=== PATIENT | female | born 1945 | race Caucasian/White ===

== ENCOUNTER → 2021-06-03 10:02 | Outpatient (BNVA) | payer MEDICARE, SELFPAY | PROVIDERS: Visit Provider Surgery | DX: Z01.812 Encounter for preprocedural laboratory examination (principal); Z20.822 Contact with and (suspected) exposure to COVID-19 | CPT/HCPCS: 87635 ==

== ENCOUNTER 2021-06-08 08:11 | Day surgery (SDC) | payer MEDICARE, SELFPAY ==
--- NOTE | 2021-06-08 08:28 | ANES.PREANE2 ---
Pre-Anesthetic Assessment Pre-Anesthetic Assessment: Height/Weight: Height 1.65 m Preop Diagnosis: History of colon polyps Proposed Procedure: Operation Date: 06/08/21 09:45 Proposed Procedures p Colonoscopy 37843 z86.010(Not Applicable) - Yao James MD Was Beta Nusrat taken within 24 hours: N/A Was Clonidine taken within 24 hours: N/A Social: Social History: No alcohol and No tobacco Exam: Pre-Anes Outpt Exam: alert, oriented x 3, clear to auscultation bilaterally and regular rate & rhythm Airway: Submandibular: WNL Cervical ROM: WNL MP: 2 Dentition: False CV/HEM: CV/HEM: HTN Metabolic: Metabolic: Hyperlipidemia and Morbid obesity Anesthetic Plan: ASA status: 3 Anesthesia: MAC Risk of > 500 ml blood loss (7ml/kg in children): No PFSH Anesthesia PFSH: Family History Denies family history of Anesthesia complication Bleeding disorder Social History Smoking and tobacco status: former smoker Data Anesthesia Cardiac Studies: No Data to Display
[2021-06-08 09:09] VITALS: BP 161/88; PULSE 75; RESP 18; TEMP 36.4; O2SAT 99; BMI 32.5
[2021-06-08] MEDS: sodium chloride 0.9% 1,000 ML 30 ML IV (09:26)
--- NOTE | 2021-06-08 09:50 | W.PM.OPSFHP ---
Same Day Surgery H&P Indication for Procedure/HPI DATE OF PROCEDURE: June 08, 2021 CHIEF COMPLAINT/INDICATIONFOR SURGICAL PROCEDURE: Had polyps before PREOP DIAGNOSIS: History of colon polyps PLANNED PROCEDRUE: Operation Date: 06/08/21 09:45 Proposed Procedures p Colonoscopy 48067 z86.010(Not Applicable) - Yao James MD This is a pleasant 75 years old female patient with history of colon polyps and she did undergo colonoscopy 6 years ago. Denies bleeding per rectum or nonintentional weight loss or colon cancer history,patient is referred to my practice for surveillance colonoscopy. Interim history 06/08/2021 Patient comes today for surveillance colonoscopy ROS All systems have been reviewed negative except as per the above or per problem list Medications/Allergies* Home Medications Medication Instructions Recorded Confirmed Type fluticasone propionate 50 1 spray INTRANASAL DAILY 04/14/21 04/16/21 History mcg/actuation nasal spray,suspension lisinopril 10 mg tablet 10 mg PO DAILY 04/14/21 04/16/21 History lovastatin 20 mg tablet 20 mg PO DAILY 04/14/21 04/16/21 History multivitamin 1 tab PO DAILY 04/14/21 04/16/21 History omega-3 fatty acids 1,000 mg 1,000 mg PO DAILY 04/14/21 04/16/21 History capsule vitamin E (dl, acetate) PO 04/14/21 04/16/21 History bupropion HCl PO 06/08/21 History Allergies/Adverse Reactions Allergy/AdvReac Type Severity Reaction Status Date / Time No Known Allergies Allergy Unverified 06/08/21 10:18 Current Medications: Generic Name Dose Route Start Last Admin Trade Name Anicetoq PRN Reason Stop Dose Admin Sodium Chloride 1,000 mls @ 30 mls/hr 06/08/21 08:30 06/08/21 09:26 Sodium Chloride 0.9% IV 06/09/21 08:29 30 mls/hr .Q24H TUNDE Administration Pertinent History/Comorbid Conditions* Family History (Updated 04/14/21 @ 11:24 by JEY Pulido) Denies family history of Anesthesia complication Bleeding disorder Social History Smoking and tobacco status: former smoker Pertinent Exam Findings alert, oriented x 3, clear to auscultation bilaterally, regular rate & rhythm and procedure specific exam findings (Abdominal examination nontender nondistended soft) Recommendations Surgery/Procedure today (Surveillance colonoscopy) Other Plans: Plan of care; After thorough history and physical examination and reviewing the chart, plan to perform surveillance colonoscopy. I discussed with the patient in details the risks,benefits,alternatives and indications.The risk of aspiration, bleeding, soft tissue injury, perforation of the colon and other potential concomitant complications were explained to the patient in details,also the potential need for Laproscoy/Laparotomy to repair any related complications including but not limited to colectomy and or Closotomy.The patient understood this well and did agree to proceed. Rationale was carefully and clearly discussed with the patient.Appropriate informed consent have been reviewed and signed All questions have been answered and all concerns have been addressed to patient's satisfaction. Verbal and written Instructions were given to the patient for colonoscopy prep Coding Level of Care Code Acute Licensing Analyst for Nikki Zafar
[2021-06-08 10:47] VITALS: BP 161/85; PULSE 75; RESP 16; TEMP 36.3; O2SAT 98
[2021-06-08 11:01] VITALS: BP 159/81; PULSE 66; RESP 18; O2SAT 97
--- NOTE | 2021-06-08 14:33 | ANE.PACU2 ---
Inpatient post-anesthesia follow up: Airway intact: Yes Vital signs: Temperature 97.3 F Pulse Rate 66 Respiratory Rate 18 Blood Pressure 159/81 Pulse Oximetry 97 Oxygen Delivery Me thod Room Air Oxygen Flow Rate Fraction of Inspir ed Oxygen Hydration adequate: Yes Nausea and vomiting: No Mental status: Baseline
== END 2021-06-08 11:13 | disposition home or self-care (01) ==
PROVIDERS: PCP Family Medicine; Visit Provider Surgery
PROC: 0DJD8ZZ Inspection of Lower Intestinal Tract, Via Natural or Artificial Opening Endoscopic (ICD-10-PCS; CPT 45378; principal; 2021-06-08 09:45)
DX: Z12.11 Encounter for screening for malignant neoplasm of colon (principal); Z86.010 Personal history of colon polyps; D12.2 Benign neoplasm of ascending colon; I10 Essential (primary) hypertension; E78.5 Hyperlipidemia, unspecified; E66.01 Morbid (severe) obesity due to excess calories; Z68.32 Body mass index [BMI] 32.0-32.9, adult; Z87.891 Personal history of nicotine dependence
CPT/HCPCS: 45380; 88305; 96360; 96361; J2704; J7030

== ENCOUNTER 2022-01-27 10:05 | Outpatient (CLI) | payer MEDICARE, SELFPAY ==
--- NOTE | 2022-01-27 10:26 | MM_ITS ---
WS: [id number] BILATERAL SCREENING 3D TOMOSYNTHESIS DIGITAL MAMMOGRAM WITH CAD HISTORY: SCREENING COMPARISON: 08/03/2020 and 06/27/2018 Bilateral CC and MLO views submitted. Computer aided detection analyzed. Breast composition: There are scattered areas of fibroglandular density. No suspicious masses, microc alcifications or architectural distortion. Benign coarse calcifications in each breast. MM/[place] [id number] IMPRESSION: BI-RADS: 2-Benign FOLLOW UP: 1 Year Follow-up
== END 2022-01-27 10:06 | disposition home or self-care (01) ==
LOC: RADSHAW 10:11
PROVIDERS: PCP Family Medicine; Visit Provider Nurse Practitioner Family
DX: Z12.31 Encounter for screening mammogram for malignant neoplasm of breast (principal)
CPT/HCPCS: 77063; 77067

== ENCOUNTER → 2023-12-17 10:58 | Outpatient (BNVA) | payer MEDICARE, SELFPAY | PROVIDERS: PCP Family Medicine; Referring Provider Nurse Practitioner Family; Visit Provider Internal Medicine Pulmonary Disease | DX: R91.8 Other nonspecific abnormal finding of lung field (principal); R06.02 Shortness of breath; J43.2 Centrilobular emphysema; Z87.891 Personal history of nicotine dependence | CPT/HCPCS: 99204 ==

== ENCOUNTER 2024-01-01 09:45 | Day surgery (SDC) | payer MEDICARE, SELFPAY ==
[2024-01-01] VITALS (10 sets, daily range): BP systolic 142–154; BP diastolic 61–101; PULSE 78–88; RESP 16–18; TEMP 36.1–36.6; O2SAT 92–99; BMI 33.3
--- NOTE | 2024-01-01 09:57 | CT_ITS ---
WS: [id number] CT CHEST TECHNIQUE: Noncontrast CT of the chest with coronal and sagittal reformatted images. CLINICAL INFORMATION: for lung biopsies COMPARISON: 10/16/2023 DLP: [address] scans at [facility] use at least one of these dose optimization techniques: automated e xposure control; mA and/or kV adjustment per patient size (includes targeted exams where dose is matc hed to clinical indication); or iterative reconstruction. FINDINGS: Interval increase in size of the spiculated RIGHT upper lobe mass since the prior outside examination . Today this measures approximately 5.4 x 4.4 cm. Associated surrounding spiculation. This abuts the pleura anteriorly with pleural thickening. This extends inferiorly and abuts the RIGHT hilum. Moderate chronic emphysematous changes. A few calcified granulomas. Aortic calcification. Coronary ca lcification. Calcified anterior mediastinal and hilar lymph nodes. There are few slightly enlarged RI GHT anterior mediastinal and parabronchial lymph nodes. Adrenal glands are normal. Small esophageal hernia. Partially visualized LEFT renal cysts. Some of th shireen are incompletely visualized and nonspecific. Fatty atrophy of the pancreas. No axillary lymphaden opathy. IMPRESSION: 1. Images obtained for intraoperative bronchoscopy navigational purposes
[2024-01-01] MEDS: sodium chloride 0.9% 1,000 ML 30 ML IV (10:37)
--- NOTE | 2024-01-01 10:50 | ANES.PREANE2 ---
Pre-Anesthetic Assessment Height/Weight: Height 1.65 m Weight 90.718 kg Temp Pulse Resp BP Pulse Ox O2 Del Method 97.8 F 78 18 150/101 98 Room Air 01/01/24 10:22 01/01/24 10:01/01/24 10:01/01/24 10:22 01/01/24 10:01/01/24 10:22 Operation Date: 01/01/24 11:40 Proposed Procedures p ION/EBUS. 13757, 45412, 02156, 03023, 24492, 00692, 84220, 67422, 73049, 45561, 36568, 49517, 78356, 3165,R91.8,R59.0(Not Applicable) - Reginald Ventura MD s Ebus(Not Applicable) - Reginald Ventura MD Last intake: Intake Last Liquid Date 12/31/23 Last Liquid Time 22:00 Last Solid Date 12/31/23 Last Solid Time 20:00 Social ex smoker 10 years ago Exam alert, oriented x 3, clear to auscultation bilaterally and regular rate & rhythm Airway Cervical ROM: within normal limits Mallampati: Class I Dentition: full Comments: Comments: uppers CV/HEM Hypertension Anesthetic Plan ASA status: 3 Anesthesia: General Medications/Allergies Home Medications Medication Instructions Recorded Confirmed Last Taken Type lisinopril 10 mg tablet 10 mg PO DAILY 04/14/21 01/01/24 12/31/23 History lovastatin 20 mg tablet 20 mg PO DAILY 04/14/21 01/01/24 12/31/23 History multivitamin 1 tab PO DAILY 04/14/21 01/01/24 12/31/23 History omega-3 fatty acids 1,000 mg 1,000 mg PO DAILY 04/14/21 01/01/24 12/31/23 History capsule (Fish Oil Concentrate) bupropion HCl 150 mg tablet,12 hr 150 mg PO BID 06/08/21 01/01/24 12/31/23 History sustained-release ginkgo biloba leaf extract 30 mg 30 mg PO DAILY 12/17/23 01/01/24 12/31/23 History capsule tiotropium bromide 18 mcg capsule 1 cap inhalation DAILY #60 12/17/23 01/01/24 12/31/23 Rx with inhalation device (Spiriva inhalations with HandiHaler) Allergies Allergy/AdvReac Type Severity Reaction Status Date / Time No Known Allergies Allergy Verified 12/17/23 11:19 Current Medications Generic Name Dose Route Start Last Admin Trade Name Anicetoq PRN Reason Stop Dose Admin Sodium Chloride 1,000 mls @ 30 mls/hr 01/01/24 10:00 01/01/24 10:37 Sodium Chloride 0.9% IV 01/02/24 09:59 30 mls/hr .Q24H TUNDE Administration PFSH Anesthesia Medical History Colon polyp Family History Denies family history of Anesthesia complication Bleeding disorder Social History Smoking and tobacco/nicotine status: never used tobacco/nicotine Quit status (tobacco/nicotine): has quit using Year quit tobacco: 2012 Former quit date comment: 2 ppd X 50 years Data Anesthesia Cardiac Studies: No Data to Display
--- NOTE | 2024-01-01 11:44 | W.PM.OPSUD ---
Surgery/Procedure H&P Update DATE OF PROCEDURE: January 01, 2024 DATE H&P PERFORMED: 12/17/23 H&P UPDATE INFORMATION: I have reviewed H&P completed within last 30 days, I have examined patient prior to procedure and No changes to prior documentation CHANGES TO PREVIOUS DOCUMENTATION: none PREOP DIAGNOSIS: right upper lobe suspicious for malignancy PRIMARY INDICATION FOR PROCEDURE: right upper lobe suspicious for malignancy PLANNED PROCEDURE: Operation Date: 01/01/24 11:40 Proposed Procedures p ION/EBUS. 72009, 66628, 28820, 56631, 73457, 44693, 98884, 20718, 06650, 92139, 70607, 45471, 24299, 3165,R91.8,R59.0(Not Applicable) - Reginald Ventura MD s Ebus(Not Applicable) - Reginald Ventura MD Related Problem List Diagnoses (1) Lung mass:
--- NOTE | 2024-01-01 11:45 | SC_ITS ---
WS: [id number] INTRAOPERATIVE TECHNIQUE: 2 Spot fluoroscopic images for intraoperative purposes. FLUOROSCOPY TIME: 53.6 seconds CLINICAL INFORMATION: ION/EBUS/BRONCH COMPARISON: None. FINDINGS: Bronchoscopy with cannulation of the RIGHT upper lobe bronchus. IMPRESSION: Images obtained for intraoperative purposes.
[2024-01-01] MEDS: lidocaine 1% INJ 10 mL (per mL) XX (12:10)
[2024-01-01 12:53] LABS: Cyto Order Verification Order Verified
[2024-01-01 12:56] LABS: Apprearance, Bronch Wash Bloody (CLEAR); Bronch Source Right Upper Lobe; Color, Bronc Wash Red; PATH Referral Yes
--- NOTE | 2024-01-01 13:17 | XRR_ITS ---
PROCEDURE INFORMATION: Exam: XR Chest Exam date and time: 01/01/2024 2:06 PM Age: 78 years old Clinical indication: Device placement; Other: Post ion/ebus; Prior surgery; Surgery date: Post-operative (0-2 days); Additional info: Post ion/ebus, will call from pacu when ready TECHNIQUE: Imaging protocol: Radiologic exam of the chest. Views: 1 view. COMPARISON: CT chest ION (PULM ONLY) [id number] 01/01/2024 10:02 AM FINDINGS: Lungs: Right upper lobe mass as on concurrent CT. Coarse interstitial markings may reflect a mild degree of pulmonary edema. Pleural spaces: No pleural effusion. No pneumothorax. Heart/Mediastinum: No cardiomegaly. Bones/joints: No acute findings. XR/XR chest 1V portable [id number] IMPRESSION: No unexpected postoperative findings.
--- NOTE | 2024-01-01 15:27 | P.OP_ITS ---
Operative Report Date of procedure: January 01, 2024 Pre-op diagnosis: suspected malignancy Post-op diagnosis: suspected malignancy Procedure done: -Dx Bronchoscope w/Washings or airway inspection -Dx Bronchoscope w/BAL -Bronch with computer image guided Navigational Bronchoscopy -Bronchoscopy w/Transbronchial lung biopsy(s), single lobe using forceps -Bronchoscopy w/Transbronchial needle aspiration biopsy(s), tracheal, main stem, and/or lobar bronchus -Bronchoscopy w/ therapeutic aspiration of the tracheobronchial tree (clearance of airway secretions, removal of mucus plugs) -EBUS Sampling > 3 lymph nodes Surgeon: Reginald Ventura MD Brief History: Ms. Lizeth Rebolledo is a 78-year-old female is referred by her primary care physician Ms. Cirsty Jonas for lung mass. She has past medical history of hypertension, hyperlipidemia,. She had respiratory infection in September [address] chest 10/16/2023 showed right upper lobe solid 3.9 x 3.5 cm mass. Enlarged mediastinal lymph nodes. Moderately emphysematous changes. She is a former smoker with hx of 2 ppd X 50 years, quit in 2012. Unfortunately She lost her 3 days ago and has rescheduled her procedure to this week. Today she comes for navigational bronchoscopy guided biopsies and endobronchial ultrasound-guided biopsy of hilar/mediastinal lymph node. Today CT chest rior to procedure compared to September 2023 CAT scan shows increase in size approximately 5.4 x 4.4 cm. Associated surrounding spiculation. This abuts the pleura anteriorly with pleural thickening. This extends inferiorly and abuts the RIGHT hilum. Procedure: ROBOTIC BRONCHOSCOPY NOTE: Pre-procedure Verification: Prior to the procedure, the patient's identity was verified by full name, date of and medical record number. The patient's identity was verified on all pertinent medical records. Also prior to the procedure, a History and Physical was performed, and patient medications, allergies and sensitivities were reviewed. The patient's tolerance of previous anesthesia was reviewed. The risks and benefits of the procedure and the sedation options and risks were discussed with the patient. All questions were answered and informed consent was obtained. Planning: Using the [employer] ([employer]) planning software, this patient?s preoperative CT was loaded onto the system and then target and pathway mapping was performed. This was all done prior to the start of the procedure and appropriate plan verified prior to induction. Anesthesia: General anesthesia was used. Please see anesthesiology documentation for full details. A modified LNVP/Yolande Protocol was used for robotic bronchoscopy with rapid Intubation, recruitment maneuvers, Tidal Volume around 8 -10mL/Kg [place] Body Weight, and PEEP 10-15 as feasible. Time-Out: Prior to the start of the procedure, the patient's identification, proposed procedure, accurate signed consent, correctly labeled images and records, and need for prophylactic antibiotics were verified by the physician, the nurse, the anesthesiologist and the coal hauler operator in the procedure room. Procedural Details: After obtaining informed consent, The procedure was accomplished without difficulty. The patient tolerated the procedure well. Patient preparation: Patient was placed under general anesthesia. An 8.5 ETT was placed for bronchoscopy. The larynx and vocal cords were not visualized. The trachea was anatomically normal The right sided airway was anatomically normal without endobronchial lesions. thin slightly mucoid appearing secretions. The left sided airway was anatomically normal without endobronchial lesions. thin slightly mucoid appearing secretions. Therapeutic aspiration of the airways, initial encounter, was performed at the right bronchial tree. The therapeutic bronchoscope was then removed. We communicated with the anesthesia team to ensure proper ventilator settings for optimal peripheral bronchoscopy. FIRST LOBE: The Ion Shape Sensing Robotic Assisted Bronchoscope was brought into the field and the process of registration was carried out. The guide catheter was used for peripheral navigational bronchoscopy using the planned pathway into the right upper lobe anterior segment mass and was able to be wedged peripherally at a distance of 8 mm away from the target. We locked the catheter position in, and removed the vision probe. We introduced the radial EBUS probe and obtained an good concentric signal [id number] image location relative to the lesion in the same lobe. We confirmed our location with a fluoroscopic C-arm. We then removed the R-EBUS and introduced the biopsy tools starting with a 21 G ION bronchoscopic peripheral needle for Transbronchial Needle Aspirations (TBNA) . The first pass was not sent for Rapid On Site Evaluation (ANATOLIY) as we do not have onsite pathology. We continued more biopsies in a cloud format. Transbronchial biopsies of right upper lobe anterior segment mass were made using forceps. Transbronchial biopsy technique was selected because the sampling site was not visible endoscopically. The sampling device penetrated the full thickness of the bronchial wall to obtain the biopsy of lung tissue. 5 biopsy passes were performed, and the same number of biopsy samples were obtained. Finally, we used a 20 cc syringe filled with normal saline connected to the proximal portion of the ION catheter and slowly injected and aspirated the contents for a bronchial alveolar lavage of the right upper lobe. The return was cloudy and blood tinged 13 cc . At this point and after confirming the absence of bleeding, we removed the channel. Minimal blood residue was cleared from the airway and the peripheral navigation portion of the procedure was concluded. Empiric cold saline was instilled through the catheter and tamponade held for 1-5 minutes. Next, we turned our attention to linear EBUS staging. An EBUS exam was performed: - Stations 11 L, station 7, station 4R, station 11 R were enlarged > 5mm and sampled. - Stations 10L, 4L, 10R, and were also scanned but no obvious lymph nodes were identified and thus did not meet criteria for sampling. Level 11L station was identified with the EBUS scope at the LLL/L hilum and 3 passes were made using a 21G Olympus TBNA needle. Level 7 station was identified with the EBUS scope at the medial LMSB/RMSB and 4 passes were made using a 21 G Olympus TBNA needle. Level 4R station was identified with the EBUS scope at the lateral RMSB and 3 passes were made using a 21G Olympus TBNA needle. Level 11R station was identified with the EBUS scope at the RBI/R hilum and 3 passes were made using a 21G Olympus TBNA needle. Rapid onsite path evaluation (ANATOLIY) was not utilized for this case. Following completion of all diagnostic and therapeutic procedures, hemostasis was verified. The scope was removed and procedure concluded. Samples: A. Right upper lobe mass 1. Total of 5 passes were made using needle aspiration ; we do not have onsite pathology and so all the material was placed in formalin for histopathology 2. Targeting the same area 5 passes were made using forceps ; we do not have onsite pathology and so all the material was placed in formalin for histopathology 3. Bronchoscope was wedged at the entrance of the anterior segment of right upper lobe, 20 mL of saline was instilled and returned 13 mL of bronchoalveolar lavage . The fluid was mixed with blood and specks of tissue. Samples for cell count, cytology, cultures B. EBUS guided Fine-needle aspiration biopsies were taken from Stations 11 L, station 7, station 4R, station 11 R 5. Total of 3 passes were made using needle aspiration from station 11 L; all the material was placed in formalin and sent for histopathology 6. Total of 3 passes were made using needle aspiration from station 7; all the material was placed in formalin and sent for histopathology 7. Total of 3 passes were made using needle aspiration from station 4 R; all the material was placed in formalin and sent for histopathology 8. Total of 3 passes were made using needle aspiration from station 11 R; all the material was placed in formalin and sent for histopathology Complications: None.The patient was extubated and brought to the PACU in stable condition. Postprocedure chest x-ray: There is no evidence of pneumothorax Disposition: Patient can be discharged home in stable condition. Pt, and family are aware that I am going to call them to update final biopsy results once available.
[2024-01-01 15:28] LABS: Total Cells Counted Bronch 200
--- NOTE | 2024-01-01 15:38 | ANE.PACU2 ---
Inpatient post-anesthesia follow up: Vital signs: Temperature 97.5 F Pulse Rate 84 Respiratory Rate 18 Blood Pressure 150/73 Pulse Oximetry 93 Oxygen Delivery Me thod Room Air Oxygen Flow Rate 8 Fraction of Inspir ed Oxygen Additional Comments: no apparent anesthetic complications noted.
[2024-01-09 10:50] LABS: PD-L1 (Clone 22C3) by IHC BBPL See Report
== END 2024-01-01 14:53 | disposition home or self-care (01) ==
PROVIDERS: PCP Family Medicine; Visit Provider Internal Medicine Pulmonary Disease
PROC: 0BJ08ZZ Inspection of Tracheobronchial Tree, Via Natural or Artificial Opening Endoscopic (ICD-10-PCS; CPT 31622; principal; 2024-01-01 11:40)
PROC: BB4BZZZ Ultrasonography of Pleura (ICD-10-PCS; 2024-01-01 11:40)
DX: C34.11 Malignant neoplasm of upper lobe, right bronchus or lung (principal); Z87.891 Personal history of nicotine dependence; J43.2 Centrilobular emphysema; I10 Essential (primary) hypertension
CPT/HCPCS: 31624; 31627; 31628; 31629; 31645; 31653; 71045; 71250; 76000; 80503; 87070; 87205; 88112; 88305; 88341; 88342; 89050; J1100; J2371; J2405; J2704; J3010; J3490; J7030

== ENCOUNTER 2024-01-09 06:54 | Outpatient (CLI) | payer MEDICARE, SELFPAY ==
[2024-01-09 07:32] VITALS: PULSE 98; RESP 18; O2SAT 97
[2024-01-09] MEDS: albuterol 2.5 mg/3 mL Neb INHALATION (07:32)
[2024-01-09 07:36] VITALS: PULSE 97
== END 2024-01-09 06:55 | disposition home or self-care (01) ==
LOC: RT 06:54
PROVIDERS: PCP Family Medicine; Visit Provider Internal Medicine Pulmonary Disease
DX: R06.02 Shortness of breath (principal)
CPT/HCPCS: 94060; 94618; 94726; 94729

== ENCOUNTER 2024-01-10 10:34 | Oncology outpatient (recurring) (ONCR) | payer MEDICARE, MEDICAID, SELFPAY ==
[2024-01-10 12:12] LABS: Basophils % 0.5 %; Eosinophils # 0.4 10^3/uL (0.0-0.8); Hematocrit 41.1 % (36-47); Lymphocytes # 1.7 10^3/uL (0.8-4.8); Lymphocytes % 20.5 %; Mean Corpuscular HGB Conc 33.1 g/dL (30-55); Mean Corpuscular Hemoglobin 32.9 pg (27-33); Mean Corpuscular Volume 99.5 fl (85-98); Mean Platelet Volume 9.8 fL (7.4-10.4); Monocytes # 1.1 10^3/uL (0.2-0.9); Monocytes % 13.3 %; Neutrophils # 4.87 10^3/uL (1.8-7.7); Neutrophils % 60.5 %; Nucleated Red Blood Cells % 0 %; Platelet Count 328 10^3/cmm (157-399); Red Blood Count 4.13 10^6/uL (3.85-5.65); White Blood Count 8.05 10^3/uL (3.29-11.43)
[2024-01-10 13:04] LABS: Alanine Aminotransferase 11 U/L (0-33); Albumin Level 3.9 g/dL (3.5-5.2); Alkaline Phosphatase 106 U/L (35-105); Anion Gap 16.3 (5-19); Aspartate Amino Transferase 16 U/L (0-32); Blood Urea Nitrogen 14 mg/dL (8-23); Calcium 9.2 mg/dL (8.5-10.5); Carbon Dioxide 25 mmol/L (22-29); Chloride 103 mmol/L (98-107); Creatinine Clr Calc Pharmacy 37.2536; Free T4 Free Thyroxine 1.16 ng/dL (0.82-1.77); Globulin 3.8 g/dL (1.3-4.6); Glucose 82 mg/dL (65-115); Osmolality Calculated 290 mOsm/kg (285-295); Potassium 4.3 mmol/L (3.5-5.1); Sodium 140 mmol/L (136-145); Thyroid Stimulating Hormone 3.21 uIU/mL (0.27-4.20); Total Bilirubin 0.2 mg/dL (0.15-1.2); Total Protein 7.7 g/dL (6.6-8.7)
[2024-01-10 13:16] LABS: Hepatitis A Antibody IgM Non-Reactive (Nonreactive); Hepatitis B Core AB, Total Non-Reactive (Nonreactive); Hepatitis B Surface AB < 3.5 (11.5-1000); Hepatitis B Surface Antigen Non-Reactive (Nonreactive); Hepatitis C Virus Antibody Non-Reactive (Nonreactive)
== END 2024-01-27 23:59 | disposition home or self-care (01) ==
PROVIDERS: PCP Family Medicine; Visit Provider Internal Medicine
DX: C34.11 Malignant neoplasm of upper lobe, right bronchus or lung (principal); Z87.891 Personal history of nicotine dependence; J43.2 Centrilobular emphysema; R53.83 Other fatigue; Z13.29 Encounter for screening for other suspected endocrine disorder; Z11.59 Encounter for screening for other viral diseases
CPT/HCPCS: 36415; 80053; 84439; 84443; 85025; 86705; 86706; 86709; 86803; 87340; 99205

== ENCOUNTER → 2024-01-15 13:51 | Outpatient (BNVA) | payer MEDICARE, MEDICAID, SELFPAY | PROVIDERS: PCP Family Medicine; Visit Provider Internal Medicine Pulmonary Disease | DX: C34.91 Malignant neoplasm of unspecified part of right bronchus or lung (principal); J43.2 Centrilobular emphysema; K29.60 Other gastritis without bleeding | CPT/HCPCS: 99214 ==

== ENCOUNTER → 2024-01-21 09:17 | Outpatient (BNVA) | payer MEDICARE, SELFPAY | PROVIDERS: PCP Family Medicine; Referring Provider Internal Medicine; Visit Provider Surgery | DX: C34.91 Malignant neoplasm of unspecified part of right bronchus or lung (principal) | CPT/HCPCS: 99214 ==

== ENCOUNTER 2024-01-22 07:38 | Outpatient (CLI) | payer MEDICARE, SELFPAY ==
--- NOTE | 2024-01-22 07:47 | PETR_ITS ---
PROCEDURE INFORMATION: Exam: PET/CT Skull Base to Mid-thigh Exam date and time: 01/22/2024 8:49 AM Age: 78 years old Clinical indication: Abnormal findings; Lung mass; Additional info: Follow up lung mass. History of bronchoscopy 01/01/2024. LABS AND CLINICAL REPORTS: Glucose: 118 mg/dl Treatment strategy for malignancy (PET staging): Initial Staging (PI) TECHNIQUE: Imaging protocol: Following at least four-hour fasting and following the injection of radiopharmaceutical, low dose CT images were obtained. Then, PET images were obtained. Attenuation corrected images were constructed using the CT scan. Fused images of PET and CT were reviewed. The standardized uptake values (SUV) reported below are maximum values within a region of interest, expressed in gm/ml. Exam includes orbital meatal line to mid-thigh. Radiopharmaceutical: 12.71 mCi F-18 FDG (Fluorodeoxyglucose), IV. Time of imaging post radiopharmaceutical administration: 1 hour Injection site: Right antecubital COMPARISON: CT chest ION (PULM ONLY) [id number] 01/01/2024 10:02 AM, CT chest 10/16/2023 FINDINGS: Brain: Visualized brain has normal physiologic uptake. Pharynx: No abnormal uptake. Larynx: No abnormal uptake. Lungs, pleura and trachea: A solid right upper lobe mass which abuts the superior right perihilar region measures up to approximately 4.8 x 5.0 cm in the axial plane on series 3, image 72, SUV max 20.5. Calcified granulomas in the lungs are noted bilaterally. Mild centrilobular emphysematous changes are noted.Mild dependent streaky density in the lungs is consistent with atelectasis. Heart: Normal physiologic uptake. Mediastinal space: No abnormal uptake. Liver: No abnormal uptake. Gallbladder and bile ducts: No abnormal uptake. Pancreas: No abnormal uptake. Spleen: No abnormal uptake. A calcified granuloma in the spleen is noted. Adrenal glands: No abnormal uptake. Kidneys and ureters: Low-density non radiotracer avid structures in both kidneys are compatible with probable benign cysts. Stomach and bowel: No abnormal uptake. Vasculature: No abnormal uptake. There are diffuse atherosclerotic changes. Lymph nodes: Partially calcified precarinal and right hilar lymph nodes are noted demonstrating elevated uptake for example in the precarinal space measuring 2.7 x 2.1 cm on series 3, image 73, SUV max 5.1 and in the right hilar region in a region measuring approximately 2.4 x 1.7 cm on series 3, image 78, SUV max 6.4. Assessment of the size of these lymph nodes is limited without intravenous contrast. Bones/joints: No abnormal uptake in the visualized axial and appendicular skeleton. Degenerative changes in the spine are noted with mild to moderate lumbar spine levoscoliosis. Soft tissues: No abnormal uptake in the visualized head, neck, chest, abdomen, pelvis, and extremities. METRICS: Mediastinal blood pool: SUV max 2.2 [facility] [id number] IMPRESSION: 1. A right upper lobe mass demonstrates marked elevated uptake compatible with malignancy. Correlation with the bronchoscopy results is recommended. 2. Radiotracer uptake within partially calcified precarinal right hilar lymph nodes is noted. Although malignancy cannot be excluded, inflammatory or infectious uptake may alternatively account for this appearance. 3. No additional areas of radiotracer avid malignancy. 4. Old granulomatous changes. 5. Additional nonurgent findings as detailed above.
== END 2024-01-22 07:39 | disposition home or self-care (01) ==
LOC: RAD 07:39
PROVIDERS: PCP Family Medicine; Visit Provider Internal Medicine Pulmonary Disease
DX: R91.8 Other nonspecific abnormal finding of lung field (principal)
CPT/HCPCS: 78815; A9552

== ENCOUNTER 2024-01-23 12:02 | Day surgery (SDC) | payer MEDICARE, SELFPAY ==
--- NOTE | 2024-01-23 12:26 | XRR_ITS ---
PROCEDURE INFORMATION: Exam: XR Chest Exam date and time: 01/23/2024 2:55 PM Age: 78 years old Clinical indication: Device placement; Other: Mediport placement; Prior surgery; Surgery date: Post-operative (0-2 days); Additional info: Postop mediport placement TECHNIQUE: Imaging protocol: Radiologic exam of the chest. Views: 1 view. COMPARISON: CR XR chest 1V portable [id number] 01/01/2024 2:06 PM FINDINGS: Tubes, catheters and devices: Central line tip mid SVC. Lungs: Right upper lobe mass unchanged. Left basilar subsegmental atelectasis. No infiltrate. Pleural spaces: Unremarkable. No pleural effusion. No pneumothorax. Heart/Mediastinum: Unremarkable. No cardiomegaly. Bones/joints: Unremarkable. XR/XR chest 1V portable [id number] IMPRESSION: 1. Right upper lobe mass unchanged. 2. Left basilar subsegmental atelectasis. 3. Central line tip mid SVC.
--- NOTE | 2024-01-23 12:26 | SC_ITS ---
WS: [id number] INTRAOPERATIVE TECHNIQUE: 2 Spot fluoroscopic images for intraoperative purposes. FLUOROSCOPY TIME: 2.4 seconds CLINICAL INFORMATION: Mediport placement COMPARISON: None. FINDINGS: LEFT Port-A-Cath with tip in the mid SVC. No pneumothorax. IMPRESSION: Images obtained for intraoperative purposes.
[2024-01-23 12:39] VITALS: BP 166/77; PULSE 86; RESP 17; TEMP 36.5; O2SAT 96
[2024-01-23 12:40] VITALS: BMI 33.1
[2024-01-23] MEDS: sodium chloride 0.9% 1,000 ML 30 ML IV (13:03)
--- NOTE | 2024-01-23 13:08 | ANES.PREANE2 ---
Pre-Anesthetic Assessment Height/Weight: Height 1.65 m Weight 90.265 kg Temp Pulse Resp BP Pulse Ox O2 Del Method 97.7 F 86 17 166/77 96 Room Air 01/23/24 12:39 01/23/24 12:39 01/23/24 12:39 01/23/24 12:39 01/23/24 12:39 01/23/24 12:57 Operation Date: 01/23/24 13:55 Proposed Procedures p Portacath Placement(Not Applicable) - Avtar Lemon DO Familial anesthetic complications: None Was Beta Nusrat taken within 24 hours: N/A Was Clonidine taken within 24 hours: N/A Last intake: Intake Last Liquid Date 01/22/24 Last Liquid Time 22:00 Last Solid Date 01/22/24 Last Solid Time 22:00 Social No alcohol and No tobacco Exam alert, oriented x 3, clear to auscultation bilaterally and regular rate & rhythm Airway Dentition: full Pulmonary Chronic Obstructive Pulmonary Disease Lung cancer CV/HEM Hypertension GI Gastroesophageal Reflux Disease Metabolic Hyperlipidemia Anesthetic Plan ASA status: 4 Anesthesia: MAC Risk of > 500 ml blood loss (7ml/kg in children): No Medications/Allergies Home Medications Medication Instructions Recorded Confirmed Last Taken Type lisinopril 10 mg tablet 10 mg PO DAILY 04/14/21 01/22/24 01/22/24 History lovastatin 20 mg tablet 20 mg PO DAILY 04/14/21 01/22/24 01/21/24 History multivitamin 1 tab PO DAILY 04/14/21 01/22/24 01/22/24 History omega-3 fatty acids 1,000 mg 1,000 mg PO DAILY 04/14/21 01/22/24 01/22/24 History capsule (Fish Oil Concentrate) bupropion HCl 150 mg tablet,12 hr 150 mg PO BID 06/08/21 01/22/24 01/22/24 History sustained-release ginkgo biloba leaf extract 30 mg 30 mg PO DAILY 12/17/23 01/22/24 01/22/24 History capsule tiotropium bromide 18 mcg capsule 1 cap inhalation DAILY #60 12/17/23 01/22/24 01/22/24 Rx with inhalation device (Spiriva inhalations with HandiHaler) pantoprazole 40 mg tablet,delayed 40 mg PO DAILY #14 tabs 01/15/24 01/22/24 01/22/24 Rx release vitamin E mixed 400 unit capsule 400 unit PO DAILY 01/15/24 01/22/24 01/22/24 History Allergies Allergy/AdvReac Type Severity Reaction Status Date / Time No Known Allergies Allergy Verified 01/22/24 16:15 Current Medications Generic Name Dose Route Start Last Admin Trade Name Freq PRN Reason Stop Dose Admin Sodium Chloride 1,000 mls @ 30 mls/hr 01/23/24 12:30 01/23/24 13:03 Sodium Chloride 0.9% IV 01/24/24 12:29 30 mls/hr .Q24H TUNDE Administration PFSH Anesthesia Medical History (Updated 01/21/24 @ 09:48 by Avtar Lemon DO) Hyperlipemia Hypertension Depression with anxiety Adenocarcinoma of right lung Colon polyp Surgical History (Updated 01/21/24 @ 09:48 by Avtar Lemon DO) History of colonoscopy History of cholecystectomy History of appendectomy Family History Denies family history of Anesthesia complication Bleeding disorder Social History Smoking and tobacco/nicotine status: never used tobacco/nicotine Quit status (tobacco/nicotine): has quit using Year quit tobacco: 2012 Former quit date comment: 2 ppd X 50 years Data Anesthesia Cardiac Studies: No Data to Display
--- NOTE | 2024-01-23 14:53 | W.PM.OPSUD ---
Surgery/Procedure H&P Update DATE OF PROCEDURE: January 23, 2024 DATE H&P PERFORMED: 01/21/24 H&P UPDATE INFORMATION: I have reviewed H&P completed within last 30 days, I have examined patient prior to procedure and No changes to prior documentation PLANNED PROCEDURE: Operation Date: 01/23/24 13:55 Proposed Procedures p Portacath Placement(Not Applicable) - Avtar Lemon DO
[2024-01-23] MEDS: ceFAZolin 2,000 MG in sodium chloride 0.9% (plus) 50 ML 100 MG IV (15:00)
[2024-01-23] MEDS: heparin, porcine 1,000 unit/mL INJ 10 mL 10000 UNIT INJECTION (15:36)
--- NOTE | 2024-01-23 15:45 | PM.OP ---
Operative Report Date of procedure: January 23, 2024 Pre-op diagnosis: Lung cancer Post-op diagnosis: same Procedure done: Mediport placement Intraoperative interpretation of fluoroscopy Implants: PowerPort Specimens removed/disposition: None Surgeon: Avtar Lemon DO Anesthesia: MAC and Local Estimated blood loss (mL): 5 Complications: None apparent Brief History: This is a very pleasant 78-year-old female who was diagnosed with adenocarcinoma of the right lung. Oncology requested Mediport placement for chemotherapy access. The risk and benefits were explained and documented. Procedure: They put another order I will do right now things the patient was taken to the operating room and placed supine on the operating room table. All bony prominences were padded. She was given IV sedation and monitored throughout the case by the anesthesia personnel. SCDs were placed and turned on. The arms were tucked to the side. Patient received Ancef 2 g preoperatively IV. The bilateral chest wall was prepped and draped in usual sterile fashion using chlorhexidine base prep. Sterile drapes were applied. We did procedure pause prior to beginning. An 18 gauge needle was placed in the left subclavian vein. Dark, nonpulsatile blood was aspirated. A guidewire was placed through the needle centrally toward the atrial/vena caval junction. Fluoroscopy visualized good placement. The needle was removed and the guidewire was clipped to the drape with a hemostat. Further local anesthetic was infiltrated in the soft tissues of the left chest wall and a #15 blade was used to make a horizontal skin incision. A subcutaneous Mediport pocket was created using Bovie cautery, dissecting down through the skin and subcutaneous tissues. Meticulous hemostasis was achieved. The Mediport was sutured in position using 3-0 vicryl suture x2 stitches. A #15 blade was used to make a small skin geeta around the guidewire insertion area. The Mediport tubing was tunneled through the subcutaneous tissues up to the needle insertion location. A dilator with a peel-away sheath was placed over the guidewire and placed centrally. After measuring the Mediport tubing was cut to length so that the tip would end at the atrial/vena caval junction. The inner cannula and the guidewire were removed, leaving the dilator sheath in place. The Mediport was flushed. The tip of the catheter was inserted through the peel-away sheath and the peel-away sheath removed in the standard fashion. The Mediport was accessed with a straight Monzon needle and dark, nonpulsatile blood was aspirated and flushed using heparinized saline to hep-lock the Mediport. Final fluoroscopy visualization showed no kink in the catheter and the tip of the Mediport tubing near the atrial/vena caval junction. No obvious pneumothorax was visualized. Both skin incisions were thoroughly irrigated and suctioned dry. Meticulous hemostasis noted. The dermis was approximated with 3-0 Vicryl in an interrupted fashion. Skin was closed with Dermabond. Patient was awakened from anesthesia and transferred via her cart to the recovery room in stable condition. All needle, sponge, and instrument counts were correct per the operating personnel x2 counts.
[2024-01-23 15:47] VITALS: BP 129/61; PULSE 77; RESP 16; TEMP 36.1; O2SAT 99
[2024-01-23 15:52] VITALS: BP 136/63; PULSE 77; RESP 16; O2SAT 100
[2024-01-23 15:56] VITALS: BP 156/89; PULSE 77; RESP 16; O2SAT 97
[2024-01-23 16:02] VITALS: BP 174/80; PULSE 74; RESP 16; TEMP 36.6; O2SAT 96
[2024-01-23 16:16] VITALS: BP 166/96; PULSE 71; RESP 16; O2SAT 98
--- NOTE | 2024-01-23 16:35 | ANE.PACU2 ---
Inpatient post-anesthesia follow up: Airway intact: Yes Vital signs: Temperature 97.8 F Pulse Rate 71 Respiratory Rate 16 Blood Pressure 166/96 Pulse Oximetry 98 Oxygen Delivery Me thod Room Air Oxygen Flow Rate 8 Fraction of Inspir ed Oxygen Hydration adequate: Yes Nausea and vomiting: No Pain level: 1 Mental status: Baseline
== END 2024-01-23 16:35 | disposition home or self-care (01) ==
PROVIDERS: PCP Family Medicine; Visit Provider Surgery
PROC: (CPT 36561; principal; 2024-01-23 13:45)
DX: C34.91 Malignant neoplasm of unspecified part of right bronchus or lung (principal); J44.9 Chronic obstructive pulmonary disease, unspecified; I10 Essential (primary) hypertension; K21.9 Gastro-esophageal reflux disease without esophagitis; E78.5 Hyperlipidemia, unspecified; Z87.891 Personal history of nicotine dependence; Z80.1 Family history of malignant neoplasm of trachea, bronchus and lung
CPT/HCPCS: 36561; 71045; 77001; C1788; J0690; J1644; J2704; J3010; J7030

== ENCOUNTER → 2024-02-04 09:01 | Outpatient (BNVA) | payer MEDICARE, SELFPAY | PROVIDERS: PCP Family Medicine; Visit Provider Surgery | DX: C34.91 Malignant neoplasm of unspecified part of right bronchus or lung (principal) | CPT/HCPCS: 99214 ==

== ENCOUNTER 2024-02-11 10:36 | Outpatient (CLI) | payer MEDICARE, MEDICAID, SELFPAY ==
--- NOTE | 2024-02-11 11:00 | MR_ITS ---
WS: [id number] MRI BRAIN WITH AND WITHOUT CONTRAST HISTORY: staging lung cancer COMPARISON: None available. TECHNIQUE: Multiplanar imaging performed through the brain with MultiHance 20 ml's IV. No acute infarcts are seen. Boles-white matter differentiation is well preserved. There is advanced T2 and FLAIR signal white matter disease throughout the brain. Symmetric, bilateral and diffuse. There are patchy and focal areas of increased signal throughout the white matter. Small vessel ischemic carola nges extend into the allison. There are small susceptibility artifacts noted over the RIGHT cranium. No prior studies for compariso n. History provided states prior trauma as a child. Ventricles and extra-axial spaces are normal. Clivus and pituitary gland are normal. Postcontrast images are negative for masses or vascular malformations. No metastatic lesions are iden tified within the brain. Dural venous sinuses are normal. Paranasal sinuses: Well aerated with no significant disease. Mastoid air cells: Normal. Calvarium and scalp: Normal. Well-circumscribed low-attenuation mass in the soft tissues posterior to the upper cervical spine oleg sures 1.7 x 1.4 cm. Most likely representing a sebaceous or epidermoid cyst. IMPRESSION: 1. No acute infarct. 2. No intracranial mass. No metastatic disease to the brain. 3. Advanced small vessel ischemic disease in the supratentorial white matter. Mild small vessel isch emic changes in the allison.
[2024-02-11] MEDS: gadobenate dimeglumine 20 mL vial IV (11:30)
== END 2024-02-11 10:37 | disposition home or self-care (01) ==
LOC: RAD 10:38
PROVIDERS: PCP Family Medicine; Visit Provider Internal Medicine
DX: C34.90 Malignant neoplasm of unspecified part of unspecified bronchus or lung (principal); I67.82 Cerebral ischemia
CPT/HCPCS: 70553; A9577

== ENCOUNTER 2024-02-20 08:15 | Oncology outpatient (recurring) (ONCR) | payer MEDICARE, MEDICAID, SELFPAY ==
[2024-02-13 09:06] LABS: Basophils % 0.5 %; Eosinophils # 0.4 10^3/uL (0.0-0.8); Eosinophils % 5.3 %; Hematocrit 39.9 % (36-47); Lymphocytes % 12.4 %; Mean Corpuscular HGB Conc 32.8 g/dL (30-55); Mean Corpuscular Volume 100.5 fl (85-98); Mean Platelet Volume 9.9 fL (7.4-10.4); Monocytes # 0.5 10^3/uL (0.2-0.9); Monocytes % 6.5 %; Neutrophils # 5.99 10^3/uL (1.8-7.7); Neutrophils % 74.8 %; Nucleated Red Blood Cells % 0 %; Platelet Count 312 10^3/cmm (157-399); Red Blood Count 3.97 10^6/uL (3.85-5.65); Red Cell Distribution Width 13.2 % (12.1-15.1)
[2024-02-13 09:21] LABS: Alanine Aminotransferase 8 U/L (0-33); Albumin Level 3.8 g/dL (3.5-5.2); Alkaline Phosphatase 110 U/L (35-105); Anion Gap 14.9 (5-19); Aspartate Amino Transferase 17 U/L (0-32); Blood Urea Nitrogen 19 mg/dL (8-23); Calcium 9.4 mg/dL (8.5-10.5); Carbon Dioxide 26 mmol/L (22-29); Chloride 99 mmol/L (98-107); Globulin 3.6 g/dL (1.3-4.6); Glucose 114 mg/dL (65-115); Osmolality Calculated 283 mOsm/kg (285-295); Potassium 4.9 mmol/L (3.5-5.1); Sodium 135 mmol/L (136-145); Thyroid Stimulating Hormone 5.76 uIU/mL (0.27-4.20); Total Bilirubin 0.2 mg/dL (0.15-1.2); Total Protein 7.4 g/dL (6.6-8.7)
[2024-02-13] MEDS: cyanocobalamin 1,000 mcg/mL SDV 1000 MCG IM (11:40)
[2024-02-13 15:23] LABS: Free T4 Free Thyroxine 1.11 ng/dL (0.82-1.77); T3 Free 2.9 PG/ML (2.0-4.4)
[2024-02-20 09:14] LABS: Basophils % 0.1 %; Hematocrit 38.2 % (36-47); Lymphocytes # 0.9 10^3/uL (0.8-4.8); Lymphocytes % 7.9 %; Mean Corpuscular HGB Conc 32.7 g/dL (30-55); Mean Corpuscular Hemoglobin 32.6 pg (27-33); Mean Corpuscular Volume 99.5 fl (85-98); Mean Platelet Volume 9.9 fL (7.4-10.4); Monocytes # 0.8 10^3/uL (0.2-0.9); Monocytes % 7.4 %; Neutrophils # 9.52 10^3/uL (1.8-7.7); Neutrophils % 84.2 %; Nucleated Red Blood Cells % 0 %; Platelet Count 298 10^3/cmm (157-399); Red Blood Count 3.84 10^6/uL (3.85-5.65); Red Cell Distribution Width 13.2 % (12.1-15.1); White Blood Count 11.31 10^3/uL (3.29-11.43)
[2024-02-20 09:30] LABS: Alanine Aminotransferase 9 U/L (0-33); Albumin Level 3.5 g/dL (3.5-5.2); Alkaline Phosphatase 103 U/L (35-105); Anion Gap 13.8 (5-19); Aspartate Amino Transferase 16 U/L (0-32); Blood Urea Nitrogen 25 mg/dL (8-23); Carbon Dioxide 26 mmol/L (22-29); Chloride 102 mmol/L (98-107); Creatinine Clr Calc Pharmacy 34.8825; Globulin 3.7 g/dL (1.3-4.6); Glucose 140 mg/dL (65-115); Osmolality Calculated 291 mOsm/kg (285-295); Potassium 4.8 mmol/L (3.5-5.1); Sodium 137 mmol/L (136-145); Total Bilirubin 0.2 mg/dL (0.15-1.2); Total Protein 7.2 g/dL (6.6-8.7)
[2024-02-20] MEDS: sodium chloride 0.9% 250 ML 75 ML IV (11:14)
[2024-02-20] MEDS: OLANZapine 5 mg TABLET PO (11:16)
[2024-02-20] MEDS: diphenhydrAMINE 50 mg/mL SDV 1mL 25 MG IVP (11:17)
[2024-02-20] MEDS: famotidine 20 mg/2 mL INJ IVP (11:18)
[2024-02-20] MEDS: palonosetron 0.25 mg/5 mL SDV IVP (11:19)
[2024-02-20] MEDS: fosaprepitant 150 MG in sodium chloride 0.9% 150 ML 300 MG IV (11:21)
[2024-02-20] MEDS: nivolumab 240 MG, nivolumab 120 MG in sodium chloride 0.9% 250 ML 572 MG IV (11:59)
[2024-02-20] MEDS: SODIUM CHLORIDE 0.9% IV ×2 (12:49→13:15)
[2024-02-20] MEDS: PEMETREXED DISODIUM IV (12:49)
[2024-02-20] MEDS: CARBOPLATIN IV (13:15)
[2024-02-20 14:20] VITALS: BP 135/75; PULSE 73; RESP 16; TEMP 36.3; O2SAT 95
== END 2024-02-20 23:59 | disposition home or self-care (01) ==
PROVIDERS: Nurse Practitioner Family; PCP Family Medicine; Visit Provider Internal Medicine
DX: Z53.9 Procedure and treatment not carried out, unspecified reason; Z51.11 Encounter for antineoplastic chemotherapy; Z51.12 Encounter for antineoplastic immunotherapy; C34.91 Malignant neoplasm of unspecified part of right bronchus or lung; Z79.899 Other long term (current) drug therapy; Z79.52 Long term (current) use of systemic steroids
CPT/HCPCS: 80053; 84439; 84443; 84481; 85025; 96367; 96368; 96372; 96375; 96413; 96417; 99215; A4222; J1100; J1200; J1453; J2469; J3420; J3490; J7040; J7050; J9045; J9299; J9305

== ENCOUNTER 2024-03-06 21:04 | Emergency (ER) | payer MEDICARE, MEDICAID, SELFPAY ==
[2024-03-06 21:08] VITALS: BP 154/73; PULSE 97; RESP 20; TEMP 36.9; O2SAT 94; BMI 32.9
--- NOTE | 2024-03-06 21:29 | XRR_ITS ---
PROCEDURE INFORMATION: Exam: XR Chest Exam date and time: 03/06/2024 10:24 PM Age: 78 years old Clinical indication: Cough and fever; Additional info: Fever cough TECHNIQUE: Imaging protocol: Radiologic exam of the chest. Views: 1 view. COMPARISON: CR XR chest 1V portable [id number] 01/23/2024 2:55 PM FINDINGS: Tubes, catheters and devices: Left subclavian infusion port with its tip in the superior vena cava. Lungs: There is decrease in the size of the right mid lung zone mass. Left basal atelectasis/fibrotic changes. No new consolidation. Pleural spaces: Unremarkable. No pleural effusion. No pneumothorax. Heart/Mediastinum: Unremarkable. No cardiomegaly. Vasculature: Aortic arch calcifications. Bones/joints: Moderate degenerative disease of bilateral acromioclavicular joints and mild degenerative disease of the left glenohumeral joint. Mild curvature of the thoracic spine convex to the right. XR/XR chest 1V portable [id number] IMPRESSION: 1. Decrease in the size of the right mid lung zone mass with postobstructive atelectasis. 2. No new infiltrates.
[2024-03-06 23:14] LABS: Hematocrit 36.5 % (36-47); Mean Corpuscular HGB Conc 32.1 g/dL (30-55); Mean Corpuscular Hemoglobin 32.4 pg (27-33); Mean Corpuscular Volume 101.1 fl (85-98); Mean Platelet Volume 9.4 fL (7.4-10.4); Platelet Count 182 10^3/cmm (157-399); Red Blood Count 3.61 10^6/uL (3.85-5.65); White Blood Count 5.53 10^3/uL (3.29-11.43)
[2024-03-06 23:38] LABS: Alanine Aminotransferase 60 U/L (0-33); Albumin Level 3.7 g/dL (3.5-5.2); Alkaline Phosphatase 92 U/L (35-105); Anion Gap 16.2 (5-19); Aspartate Amino Transferase 44 U/L (0-32); Blood Urea Nitrogen 20 mg/dL (8-23); Calcium 9.4 mg/dL (8.5-10.5); Carbon Dioxide 25 mmol/L (22-29); Chloride 98 mmol/L (98-107); Globulin 3.9 g/dL (1.3-4.6); Glucose 96 mg/dL (65-115); Osmolality Calculated 282 mOsm/kg (285-295); Potassium 4.2 mmol/L (3.5-5.1); Sodium 135 mmol/L (136-145); Total Bilirubin 0.2 mg/dL (0.15-1.2); Total Protein 7.6 g/dL (6.6-8.7)
[2024-03-06 23:40] LABS: Creatinine Clr Calc Pharmacy 32.5969; Slide Review Slide Review Perform
[2024-03-06 23:41] LABS: Absolute Eosinophils 0.2 10^3/cmm (0.0-0.7); Absolute Segmented Neutrophil 1.9 10/cmm (1.6-7.1); Band Neutrophils Absolute 1.2 10^3/cmm (0.0-1.2); Eosinophils 3 %; Lymphocytes 22 %; Monocytes Absolute 0.8 10^3/cmm (0.1-0.6); Segmented Neutrophils 34 %; Total Cells Counted 100 (0-100)
[2024-03-06 23:42] LABS: Absolute Neutrophil 3.1 10^3/cmm (1.4-6.5); Anisocytosis Trace; Platelet Estimate Normal (Normal)
--- NOTE | 2024-03-07 00:22 | ED_ITS ---
HPI - Fever 2 General: Chief Complaint: Fever Stated Complaint: Cancer PT\Fever Time Seen by Provider: 03/07/24 00:10 History of Present Illness: Patient presents to the ER with family at bedside thinking that she may have had a fever earlier. Patient was feeling cold and having chills she went underneath heating blanket and then when they checked her temperature was 100.5 after she got out of the heating blanket they rechecked it later it was 100.0 that she took a shower there was 100.2 so they thought that she should be checked out since she is on chemotherapy for lung cancer. Per the chart patient just got a shot of filgrastim to help raise her white blood cells. On 03 05 her white blood cell count was 1.3 today it is 5.53. Patient denies any nausea vomiting diarrhea pain burning frequency with urination. Patient does states she has chronic constipation. Review of Systems 2 General: Reports: 10 or more systems reviewed and unremarkable except in HPI and below PFSH ED 2 PFSH: Medical History Port-A-Cath in place 01/23/24 Dr Lemon Hyperlipemia Hypertension Depression with anxiety Adenocarcinoma of right lung Colon polyp Surgical History History of colonoscopy History of cholecystectomy History of appendectomy Family History Denies family history of Anesthesia complication Bleeding disorder Social History Smoking and tobacco/nicotine status: former use of tobacco/nicotine Quit status (tobacco/nicotine): has quit using Year quit tobacco: 2012 Former quit date comment: 2 ppd X 50 years Physical Exam 2 Const: COMMON NORMALS: no acute distress, average body habitus, patient oriented x3, no limitations, healthy appearing, alert and well nourished HENMT: COMMON NORMALS: normocephalic, atraumatic, hearing grossly normal bilaterally, external ears normal, Normal external nose present, moist oral mucous membranes and oropharynx normal HEAD & SCALP: normocephalic and atraumatic NOSE: Normal external nose present EXTERNAL EAR: Yes external ears normal Neck/C-Spine: COMMON NORMALS: no JVD Chest: COMMONS NORMALS: normal inspection of the chest and normal palpation of entire chest wall Resp: COMMON NORMALS: normal respiratory effort, No retractions and No use of accessory muscles; negative for clear to auscultation bilaterally (Occasional wheeze right lung base otherwise clear) AUSCULTATION: not clear to auscultation bilaterally (Occasional wheeze right lung base otherwise clear) Cardio: COMMON NORMALS: no JVD, regular rate, regular rhythm, S1 normal heart sound present, S2 normal heart sound present, No gallops present (Cardio), No clicks present (Cardio), No murmurs present (Cardio) and No rub (Cardio) R ATE: regular rate RHYTHM: regular rhythm HEART SOUNDS: S1 normal heart sound present and S2 normal heart sound present GI: COMMON NORMALS: Normal to inspection, nondistended, normoactive bowel sounds present, Soft to palpation, non-tender, No hepatosplenomegaly present and no masses PALPATION: Yes Soft to palpation and Yes No hepatosplenomegaly present Neuro: COMMON NORMALS: patient oriented x3 SENSORIUM/ORIENTATION: Yes alert Course 2 Vital Signs: Vital signs: Vital Signs Temperature 98.5 F 03/06/24 21:08 Pulse Rate 97 03/06/24 21:08 Respiratory Rate 20 H 03/06/24 21:08 Blood Pressure 154/73 03/06/24 21:08 Pulse Oximetry 94 03/06/24 21:08 Oxygen Delivery Me thod Room Air 03/06/24 21:08 MDM - Fever Medical Decision Making Patient presents to the ER for workup for possible fever. Patient had a CBC CMP chest x-ray all of which was essentially negative as well as urine, influenza and COVID swabs are in the lab. Patient decides she is ready to go home. We told her we will call her if the results are positive. Otherwise she is to follow-up with her family practice physician or oncologist for further evaluation and treatment. Differential Diagnosis Unlikely abdominal pain, acute appendicitis, calculus of kidney, constipation, diverticulitis, endometriosis, gastroenteritis, pancreatitis or small bowel obstruction Lab Data 03/06/24 22:55 03/06/24 22:55 Radiology Impressions Chest X-Ray 03/06/24 21:29 IMPRESSION: 1. Decrease in the size of the right mid lung zone mass with postobstructive atelectasis. 2. No new infiltrates. Laboratory Results WBC 5.53 10^3/uL (3.29-11.43) 03/06/24 22:55 RBC 3.61 10^6/uL (3.85-5.65) L 03/06/24 22:55 Hgb 11.70 g/dL (11.27-16.99) 03/06/24 22:55 Hct 36.5 % (36-47) 03/06/24 22:55 MCV 101.1 fl (85-98) H 03/06/24 22:55 MCH 32.4 pg (27-33) 03/06/24 22:55 MCHC 32.1 g/dL (30-55) 03/06/24 22:55 RDW 13.0 % (12.1-15.1) 03/06/24 22:55 Plt Count 182 10^3/cmm (157-399) 03/06/24 22:55 MPV 9.4 fL (7.4-10.4) 03/06/24 22:55 Lymph % (Auto) Not Reportable 03/06/24 22:55 [place] % (Auto) Not Reportable 03/06/24 22:55 Lymph # (Auto) Not Reportable 03/06/24 22:55 [place] # (Auto) Not Reportable 03/06/24 22:55 Total Counted 100 (0-100) 03/06/24 22:55 Atypical Lymphs % Not Reportable 03/06/24 22:55 Absolute Neutrophils 3.1 10^3/cmm (1.4-6.5) 03/06/24 22:55 Segmented Neutrophils 34 % 03/06/24 22:55 Abs Segm Neuts (Man) 1.9 10/cmm (1.6-7.1) 03/06/24 22:55 Band Neutrophils 22.0 % 03/06/24 22:55 Abs Band Neuts (Man) 1.2 10^3/cmm (0.0-1.2) 03/06/24 22:55 Lymphocytes (Manual) 22 % 03/06/24 22:55 Monocytes (Manual) 14.0 % 03/06/24 22:55 Absolute Monocytes 0.8 10^3/cmm (0.1-0.6) H 03/06/24 22:55 Eosinophils (Manual) 3 % 03/06/24 22:55 Absolute Eosinophils 0.2 10^3/cmm (0.0-0.7) 03/06/24 22:55 Basophils (Manual) 0.0 % 03/06/24 22:55 Absolute Basophils 0.0 10^3/cmm (0.0-0.2) 03/06/24 22:55 Myelocytes 4.0 % 03/06/24 22:55 Promyelocytes 1.0 % 03/06/24 22:55 Platelet Estimate Normal (Normal) 03/06/24 22:55 Anisocytosis Trace 03/06/24 22:55 Sodium 135 mmol/L (136-145) L 03/06/24 22:55 Potassium 4.2 mmol/L (3.5-5.1) 03/06/24 22:55 Chloride 98 mmol/L (98-107) 03/06/24 22:55 Carbon Dioxide 25 mmol/L (22-29) 03/06/24 22:55 Anion Gap 16.2 (5-19) 03/06/24 22:55 BUN 20 mg/dL (8-23) 03/06/24 22:55 Creatinine 1.6 mg/dL (0.5-0.9) H 03/06/24 22:55 GFR Calculation Not Reportable 03/06/24 22:55 Glucose 96 mg/dL (65-115) 03/06/24 22:55 Calculated Osmolality 282 mOsm/kg (285-295) L 03/06/24 22:55 Calcium 9.4 mg/dL (8.5-10.5) 03/06/24 22:55 Total Bilirubin 0.2 mg/dL (0.15-1.2) 03/06/24 22:55 AST 44 U/L (0-32) H 03/06/24 22:55 ALT 60 U/L (0-33) H 03/06/24 22:55 Alkaline Phosphatase 92 U/L (35-105) 03/06/24 22:55 Total Protein 7.6 g/dL (6.6-8.7) 03/06/24 22:55 Albumin 3.7 g/dL (3.5-5.2) 03/06/24 22:55 Globulin 3.9 g/dL (1.3-4.6) 03/06/24 22:55 Urine Color Yellow (Yellow) 03/07/24 00:47 Urine Appearance Sl hazy (CLEAR) A 03/07/24 00:47 Urine pH 6 (5-7) 03/07/24 00:47 Ur Specific [place] 1.015 (1.005-1.030) 03/07/24 00:47 Urine Protein 1+ (Negative) H 03/07/24 00:47 Urine Glucose (UA) Norm (Normal) 03/07/24 00:47 Urine Ketones Negative (Negative) 03/07/24 00:47 Urine Blood Neg (Negative) 03/07/24 00:47 Urine Nitrate Negative (Negative) 03/07/24 00:47 Urine Bilirubin Neg (Negative) 03/07/24 00:47 Urine Urobilinogen Neg mg/dL (Negative) 03/07/24 00:47 Ur Leukocyte Esterase Negative (Negative) 03/07/24 00:47 Urine RBC 0-4 /hpf (0-2) H 03/07/24 00:47 Urine WBC 10-15 /hpf (0-5) H 03/07/24 00:47 Ur Squamous Epith Cells 0-4 /hpf (0-5) H 03/07/24 00:47 Amorphous Sediment Not Reportable 03/07/24 00:47 Urine Bacteria Trace /hpf (NONE) 03/07/24 00:47 Influenza Type A Ag negative (Negative) 03/07/24 01:09 Influenza Type B Ag negative (Negative) 03/07/24 01:09 SARS-CoV-2 Ag (Rapid) negative (Negative) 03/07/24 01:09 All radiology interpretation(s) finalized by discharge Discharge Plan Discharge Patient Disposition: Home Clinical Impression: Fever Qualifiers: Fever type: unspecified Qualified Code(s): R50.9 - Fever, unspecified Condition: Stable Prescriptions: No Action lovastatin 20 mg tablet 20 mg PO DAILY lisinopril 10 mg tablet 10 mg PO DAILY multivitamin Tablet 1 tab PO DAILY omega-3 fatty acids [Fish Oil Concentrate] 1,000 mg capsule 1,000 mg PO DAILY ginkgo biloba leaf extract 30 mg capsule 30 mg PO DAILY Rx Instructions: give with meal/snack tiotropium bromide [Spiriva with HandiHaler] 18 mcg capsule, w/inhalation device 1 cap inhalation DAILY Qty: 60 6RF Rx Instructions: puncture 1 cap using device; one dose = 2 inhalations folic acid 1 mg tablet 1 mg PO DAILY Qty: 30 5RF Rx Instructions: start 7 days prior to treatment and continuing for 21 days after the last pemetrexed dose. vitamin E mixed 400 unit capsule 400 unit PO DAILY pantoprazole 40 mg tablet,delayed release (DR/EC) 40 mg PO DAILY Qty: 14 0RF levofloxacin 500 mg tablet 500 mg PO DAILY 7 Days Qty: 7 0RF bupropion HCl 150 mg tablet sustained-release 12 hr 150 mg PO BID hydrocodone-acetaminophen 7.5-325 mg tablet 1 tab PO Q6H PRN (Reason: pain) Qty: 10 0RF Colace 100 mg capsule 100 mg PO BID Qty: 10 0RF ondansetron HCl 4 mg Tablet 4 mg PO QID PRN (Reason: Nausea/vomiting) Qty: 30 3RF prochlorperazine maleate [Compazine] 10 mg tablet 10 mg PO Q4H PRN (Reason: Mild Nausea) Qty: 30 3RF dexamethasone 4 mg tablet 4 mg PO BID Qty: 24 2RF Rx Instructions: Take 1 tablet (4mg) by mouth twice daily x 3 days. Start the day prior to Alimta treatment. Discharge Orders: Discharge ED (Routine); Ordered 03/07/24 Ordered By: Mat Barksdale Referrals: Nishi Pablo MD [Primary Care Provider] - 1 week Patient Instructions: Fever - Adult Activity Restrictions/Additional Instructions: Your evaluation including lab workup in ER did not reveal any acute cause of your fever. Influenza and COVID swabs are still pending if they are positive we will call you with results. Otherwise follow-up with your family practice physician and/or oncologist as needed for further evaluation and treatment. Coding Level of Care Code ED Embedded [employer] Engineer for Nikki Zafar
[2024-03-07 01:08] LABS: Add Urine Microscopic? YES; Bilirubin Urine Neg (Negative); Blood Urine Neg (Negative); Glucose Urine UA Norm (Normal); Ketones Urine Negative (Negative); Leukocyte Esterase Urine Negative (Negative); Nitrate Urine Negative (Negative); Protein Urine 1+ (Negative); Specific Gravity, Urine 1.015 (1.005-1.030); Urine Appearance SL Hazy (CLEAR); Urine Color Yellow (Yellow); Urobilinogen Urine Neg (Negative); pH Urine 6 (5-7)
[2024-03-07 01:09] LABS: Add Urine Culture? No; Bacteria Urine TRACE /hpf; RBC Urine 0-4 /hpf (0-2); Squamous Epithelial Cell Urine 0-4 /hpf (0-5)
[2024-03-07 01:33] LABS: Influenza A by IFA negative (Negative); Influenza B by IFA negative (Negative); SARS Covid-2 Antigen negative (Negative)
== END 2024-03-07 01:36 | disposition home or self-care (01) ==
PROVIDERS: Emergency Provider Emergency Medicine; PCP Family Medicine
DX: R50.9 Fever, unspecified (principal); Z11.52 Encounter for screening for COVID-19; E78.5 Hyperlipidemia, unspecified; I10 Essential (primary) hypertension; Z85.118 Personal history of other malignant neoplasm of bronchus and lung; Z87.891 Personal history of nicotine dependence
CPT/HCPCS: 36415; 71045; 80053; 81001; 85007; 85025; 87426; 87804; 99284

== ENCOUNTER 2024-03-12 09:30 | Oncology outpatient (recurring) (ONCR) | payer MEDICARE, MEDICAID, SELFPAY ==
[2024-02-27 12:15] LABS: Basophils % 0.5 %; Eosinophils # 0.1 10^3/uL (0.0-0.8); Eosinophils % 5.8 %; Hematocrit 32.5 % (36-47); Lymphocytes # 0.4 10^3/uL (0.8-4.8); Lymphocytes % 20.9 %; Mean Corpuscular HGB Conc 31.7 g/dL (30-55); Mean Corpuscular Hemoglobin 32.3 pg (27-33); Mean Corpuscular Volume 101.9 fl (85-98); Mean Platelet Volume 9.5 fL (7.4-10.4); Monocytes # 0.1 10^3/uL (0.2-0.9); Monocytes % 5.8 %; Neutrophils # 1.25 10^3/uL (1.8-7.7); Neutrophils % 65.4 %; Nucleated Red Blood Cells % 0 %; Platelet Count 169 10^3/cmm (157-399); Red Blood Count 3.19 10^6/uL (3.85-5.65); Red Cell Distribution Width 13.2 % (12.1-15.1); White Blood Count 1.91 10^3/uL (3.29-11.43)
[2024-02-27 12:36] LABS: Alanine Aminotransferase 23 U/L (0-33); Albumin Level 3.1 g/dL (3.5-5.2); Alkaline Phosphatase 69 U/L (35-105); Anion Gap 15.4 (5-19); Aspartate Amino Transferase 24 U/L (0-32); Blood Urea Nitrogen 32 mg/dL (8-23); Calcium 8.1 mg/dL (8.5-10.5); Carbon Dioxide 22 mmol/L (22-29); Chloride 104 mmol/L (98-107); Glucose 143 mg/dL (65-115); Osmolality Calculated 293 mOsm/kg (285-295); Potassium 4.4 mmol/L (3.5-5.1); Sodium 137 mmol/L (136-145); Total Bilirubin 0.2 mg/dL (0.15-1.2); Total Protein 6.1 g/dL (6.6-8.7)
[2024-03-05 09:33] LABS: Basophils % 0.8 %; Eosinophils # 0.1 10^3/uL (0.0-0.8); Eosinophils % 8.3 %; Hematocrit 33.1 % (36-47); Lymphocytes # 0.4 10^3/uL (0.8-4.8); Lymphocytes % 31.8 %; Mean Corpuscular HGB Conc 32.6 g/dL (30-55); Mean Corpuscular Hemoglobin 32.7 pg (27-33); Mean Corpuscular Volume 100.3 fl (85-98); Monocytes # 0.3 10^3/uL (0.2-0.9); Monocytes % 18.9 %; Neutrophils % 37.2 %; Nucleated Red Blood Cells % 0 %; Platelet Count 92 10^3/cmm (157-399); Red Cell Distribution Width 12.4 % (12.1-15.1); White Blood Count 1.32 10^3/uL (3.29-11.43)
[2024-03-05 09:50] LABS: Alanine Aminotransferase 70 U/L (0-33); Albumin Level 3.6 g/dL (3.5-5.2); Alkaline Phosphatase 87 U/L (35-105); Anion Gap 15.7 (5-19); Aspartate Amino Transferase 54 U/L (0-32); Blood Urea Nitrogen 17 mg/dL (8-23); Calcium 9.1 mg/dL (8.5-10.5); Carbon Dioxide 25 mmol/L (22-29); Chloride 101 mmol/L (98-107); Creatinine Clr Calc Pharmacy 40.5735; Globulin 3.7 g/dL (1.3-4.6); Glucose 101 mg/dL (65-115); Osmolality Calculated 286 mOsm/kg (285-295); Potassium 4.7 mmol/L (3.5-5.1); Sodium 137 mmol/L (136-145); Total Bilirubin 0.2 mg/dL (0.15-1.2); Total Protein 7.3 g/dL (6.6-8.7)
[2024-03-05 10:10] LABS: Neutrophils # 0.49 10^3/uL (1.8-7.7)
[2024-03-05 10:13] LABS: Slide Review Slide Review Perform
[2024-03-06] MEDS: filgrastim-sndz 480 mcg/0.8 mL Syringe SUBCUT (11:06)
[2024-03-06 11:12] VITALS: BP 151/77; PULSE 61; RESP 16; TEMP 36.4; O2SAT 96
[2024-03-07] MEDS: filgrastim-sndz 480 mcg/0.8 mL Syringe SUBCUT (11:03)
[2024-03-07 11:08] VITALS: BP 137/78; PULSE 88; RESP 16; TEMP 36.6; O2SAT 92
[2024-03-10] MEDS: filgrastim-sndz 480 mcg/0.8 mL Syringe SUBCUT (10:25)
[2024-03-10 10:28] VITALS: BP 149/73; PULSE 99; RESP 16; TEMP 36.3; O2SAT 92
[2024-03-12 09:42] LABS: Hematocrit 33.5 % (36-47); Mean Corpuscular HGB Conc 32.5 g/dL (30-55); Mean Corpuscular Hemoglobin 32.7 pg (27-33); Mean Corpuscular Volume 100.6 fl (85-98); Platelet Count 660 10^3/cmm (157-399); Red Blood Count 3.33 10^6/uL (3.85-5.65); Red Cell Distribution Width 14.3 % (12.1-15.1)
[2024-03-12 10:11] LABS: Alanine Aminotransferase 25 U/L (0-33); Albumin Level 3.6 g/dL (3.5-5.2); Alkaline Phosphatase 132 U/L (35-105); Anion Gap 17.1 (5-19); Aspartate Amino Transferase 37 U/L (0-32); Blood Urea Nitrogen 23 mg/dL (8-23); Calcium 9.6 mg/dL (8.5-10.5); Carbon Dioxide 24 mmol/L (22-29); Chloride 103 mmol/L (98-107); Globulin 3.5 g/dL (1.3-4.6); Glucose 113 mg/dL (65-115); Osmolality Calculated 294 mOsm/kg (285-295); Potassium 4.1 mmol/L (3.5-5.1); Sodium 140 mmol/L (136-145); Thyroid Stimulating Hormone 2.15 uIU/mL (0.27-4.20); Total Bilirubin 0.2 mg/dL (0.15-1.2); Total Protein 7.1 g/dL (6.6-8.7)
[2024-03-12 10:13] LABS: White Blood Count 60.57 10^3/uL (3.29-11.43)
[2024-03-12 10:19] LABS: Slide Review Slide Review Perform
[2024-03-12 10:20] LABS: Absolute Neutrophil 42.4 10^3/cmm (1.4-6.5); Absolute Segmented Neutrophil 35.1 10/cmm (1.6-7.1); Band Neutrophils Absolute 7.3 10^3/cmm (0.0-1.2); Eosinophils 0 %; Giant Platelets 1+; Lymphocytes 10 %; Lymphocytes Absolute 7.9 10^3/cmm (1.2-3.4); Macrocytosis Trace; Platelet Estimate Increased (Normal); Segmented Neutrophils 58 %; Total Cells Counted 100 (0-100)
--- NOTE | 2024-03-12 12:15 | CT_ITS ---
WS: [id number] CT CHEST TECHNIQUE: Noncontrast CT of the chest with coronal and sagittal reformatted images. CLINICAL INFORMATION: r/o pneumonitis COMPARISON: None. DLP: 462.[address] scans at [facility] use at least one of these dose optimization techniques: automated e xposure control; mA and/or kV adjustment per patient size (includes targeted exams where dose is matc hed to clinical indication); or iterative reconstruction. FINDINGS: Advanced chronic emphysematous changes. Treated RIGHT upper lobe neoplasm decreased in size compared to 01/21/2024 today measuring 3.1 x 3.2 x 2.6 cm. Surrounding pleural parenchymal scarring. No acute pulmonary infiltrates. Aortic calcification. Normal caliber thoracic aorta. Coronary calcifi cation. Calcified RIGHT hilar nodes. No axillary lymphadenopathy. Adrenal glands are normal. Small es ophageal hiatal hernia with air-fluid level. Fatty atrophy of the pancreas. Partially visualized smal l renal cysts. Mild thoracic curve. Mild thoracic kyphosis hypertrophic changes thoracic spine. CT/CT chest wo con [id number] IMPRESSION: 1. No acute pulmonary infiltrates. 2. Treated neoplasm in the RIGHT upper lobe is decreased in size compared to t he prior studies with residual neoplasm measuring 3.1 x 3.1 x 2.6 with surround ing pleural parenchymal scarring. 3. Advanced chronic emphysematous changes.
[2024-03-12] MEDS: sodium chloride 0.9% 250 ML 75 ML IV (13:55)
[2024-03-12] MEDS: diphenhydrAMINE 50 mg/mL SDV 1mL 25 MG IVP (13:57)
[2024-03-12] MEDS: famotidine 20 mg/2 mL INJ IVP (13:59)
[2024-03-12] MEDS: OLANZapine 5 mg TABLET PO (13:59)
[2024-03-12] MEDS: palonosetron 0.25 mg/5 mL SDV IVP (14:01)
[2024-03-12] MEDS: fosaprepitant 150 MG in sodium chloride 0.9% 150 ML 300 MG IV (14:36)
[2024-03-12] MEDS: nivolumab 240 MG, nivolumab 120 MG in sodium chloride 0.9% 250 ML 572 MG IV (15:25)
[2024-03-12] MEDS: PEMETREXED DISODIUM IV (16:00)
[2024-03-12] MEDS: SODIUM CHLORIDE 0.9% IV ×2 (16:00→16:22)
[2024-03-12] MEDS: CARBOPLATIN IV (16:22)
[2024-03-12] MEDS: pegfilgrastim 6 mg/0.6 mL Kit (onpro) SUBCUT (17:13)
== END 2024-03-12 23:59 | disposition home or self-care (01) ==
LOC: RAD 12:18 → ONCMED 13:27
PROVIDERS: Nurse Practitioner Family; PCP Family Medicine; Visit Provider Internal Medicine
DX: Z51.11 Encounter for antineoplastic chemotherapy (principal); Z53.9 Procedure and treatment not carried out, unspecified reason; Z51.12 Encounter for antineoplastic immunotherapy; C34.11 Malignant neoplasm of upper lobe, right bronchus or lung; Z79.899 Other long term (current) drug therapy; Z87.891 Personal history of nicotine dependence; D70.1 Agranulocytosis secondary to cancer chemotherapy; T45.1X5A Adverse effect of antineoplastic and immunosuppressive drugs, initial encounter; R05.9 Cough, unspecified; J43.2 Centrilobular emphysema; K59.00 Constipation, unspecified; Z79.52 Long term (current) use of systemic steroids
CPT/HCPCS: 36591; 71250; 80053; 84443; 85007; 85025; 96367; 96372; 96375; 96377; 96401; 96413; 96417; 99214; A4222; J1100; J1200; J1453; J2469; J2506; J3490; J7040; J7050; J9045; J9299; J9305; Q5101

== ENCOUNTER 2024-04-02 08:27 | Oncology outpatient (recurring) (ONCR) | payer MEDICARE, MEDICAID, SELFPAY ==
[2024-04-02 09:02] LABS: Basophils % 0.1 %; Hematocrit 34.4 % (36-47); Lymphocytes # 0.9 10^3/uL (0.8-4.8); Lymphocytes % 8.6 %; Mean Corpuscular HGB Conc 32.3 g/dL (30-55); Mean Corpuscular Hemoglobin 32.7 pg (27-33); Mean Corpuscular Volume 101.5 fl (85-98); Monocytes # 1.1 10^3/uL (0.2-0.9); Monocytes % 10.2 %; Neutrophils # 8.33 10^3/uL (1.8-7.7); Neutrophils % 80.5 %; Nucleated Red Blood Cells % 0 %; Platelet Count 464 10^3/cmm (157-399); Red Blood Count 3.39 10^6/uL (3.85-5.65); Red Cell Distribution Width 15.9 % (12.1-15.1); White Blood Count 10.34 10^3/uL (3.29-11.43)
[2024-04-02 09:33] LABS: Alanine Aminotransferase 40 U/L (0-33); Albumin Level 3.8 g/dL (3.5-5.2); Alkaline Phosphatase 95 U/L (35-105); Aspartate Amino Transferase 24 U/L (0-32); Blood Urea Nitrogen 20 mg/dL (8-23); Calcium 9.4 mg/dL (8.5-10.5); Carbon Dioxide 26 mmol/L (22-29); Chloride 101 mmol/L (98-107); Globulin 3.4 g/dL (1.3-4.6); Glucose 115 mg/dL (65-115); Osmolality Calculated 292 mOsm/kg (285-295); Sodium 139 mmol/L (136-145); Thyroid Stimulating Hormone 2.66 uIU/mL (0.27-4.20); Total Bilirubin 0.2 mg/dL (0.15-1.2); Total Protein 7.2 g/dL (6.6-8.7)
[2024-04-02] MEDS: sodium chloride 0.9% 250 ML 75 ML IV (10:50)
[2024-04-02] MEDS: OLANZapine 5 mg TABLET PO (10:52)
[2024-04-02] MEDS: palonosetron 0.25 mg/5 mL SDV IVP (10:53)
[2024-04-02] MEDS: diphenhydrAMINE 50 mg/mL SDV 1mL 25 MG IVP (11:00)
[2024-04-02] MEDS: famotidine 20 mg/2 mL INJ IVP (11:03)
[2024-04-02] MEDS: fosaprepitant 150 MG in sodium chloride 0.9% 150 ML 300 MG IV (11:08)
[2024-04-02] MEDS: nivolumab 240 MG, nivolumab 120 MG in sodium chloride 0.9% 250 ML 572 MG IV (12:04)
[2024-04-02] MEDS: PEMETREXED DISODIUM IV (12:44)
[2024-04-02] MEDS: SODIUM CHLORIDE 0.9% IV ×2 (12:44→13:11)
[2024-04-02] MEDS: CARBOPLATIN IV (13:11)
[2024-04-02 14:40] VITALS: BP 158/78; PULSE 78; RESP 18; TEMP 36.6; O2SAT 98
== END 2024-04-02 23:59 | disposition home or self-care (01) ==
LOC: ONCMED 08:28
PROVIDERS: Nurse Practitioner Family; PCP Family Medicine; Visit Provider Internal Medicine Medical Oncology
DX: Z51.11 Encounter for antineoplastic chemotherapy (principal); Z51.12 Encounter for antineoplastic immunotherapy; Z79.899 Other long term (current) drug therapy; Z87.891 Personal history of nicotine dependence; C34.11 Malignant neoplasm of upper lobe, right bronchus or lung; Z79.52 Long term (current) use of systemic steroids
CPT/HCPCS: 80053; 84443; 85025; 96367; 96375; 96409; 96413; 96417; 99214; A4222; J1100; J1200; J1453; J2469; J3490; J7040; J7050; J9045; J9299; J9305

== ENCOUNTER → 2024-04-09 14:02 | Outpatient (BNVA) | payer MEDICARE, MEDICAID, SELFPAY | PROVIDERS: PCP Family Medicine; Visit Provider Internal Medicine Pulmonary Disease | DX: C34.91 Malignant neoplasm of unspecified part of right bronchus or lung (principal); J43.2 Centrilobular emphysema; Z87.891 Personal history of nicotine dependence | CPT/HCPCS: 99214 ==

== ENCOUNTER 2024-04-17 08:30 | Outpatient (CLI) | payer MEDICARE, MEDICAID, SELFPAY ==
--- NOTE | 2024-04-17 08:30 | CTR_ITS ---
PROCEDURE INFORMATION: Exam: CT Chest Without Contrast; Diagnostic Exam date and time: 04/17/2024 8:30 AM Age: 78 years old Clinical indication: Condition or disease; Lung condition and disease; Cancer of the lung; Unspecified; Primary cancer: Adenocarcinoma of right lung; Prior surgery; Surgery date: 1-6 months; Surgery type: Ion bronch; Additional info: Follow up adenocarcinoma of right lung TECHNIQUE: Imaging protocol: Diagnostic computed tomography of the chest without contrast. Radiation optimization: All CT scans at this facility use at least one of these dose optimization techniques: automated exposure control; mA and/or kV adjustment per patient size (includes targeted exams where dose is matched to clinical indication); or iterative reconstruction. COMPARISON: CT chest wo con [id number] 03/12/2024 12:37 PM RADIATION DOSE METRICS: Total DLP (mGy-cm): 476.09 FINDINGS: Tubes, catheters and devices: Central line terminates in the SVC. Lungs: See Kidneys and ureters finding. Pleural spaces: Unremarkable. No pneumothorax. No pleural effusion. Heart: Unremarkable. No cardiomegaly. No pericardial effusion. Coronary arteries: Extensive coronary artery calcifications. Lymph nodes: Calcified lymph nodes are not enlarged. Minimal fibrosis on each side. No suspicious adenopathy. Vasculature: Unremarkable. No aortic aneurysm. Kidneys and ureters: Numerous left renal cysts. The masslike density in the right upper lobe is slightly smaller than before, currently approximately 2.8 x 1.4 cm in size versus 3.4 x 1.7 cm previously. Bones/joints: Unremarkable. No acute fracture. Soft tissues: Unremarkable. CT/CT chest wo con [id number] IMPRESSION: The masslike density in the right upper lobe is slightly smaller than before. COMMENTS: Consistent with the [employer]'s Incidental Findings Committee white paper (J Am Shashank Radiol 2018): Any incidental renal lesion less than 1 cm or classified as too small to characterize, or any incidental cystic renal lesion characterized as simple-appearing, is likely benign. No follow-up imaging is recommended for these lesions per consensus recommendations based on imaging criteria.
== END 2024-04-17 08:31 | disposition home or self-care (01) ==
PROVIDERS: PCP Family Medicine; Visit Provider Internal Medicine Medical Oncology
DX: C34.11 Malignant neoplasm of upper lobe, right bronchus or lung (principal); I25.84 Coronary atherosclerosis due to calcified coronary lesion; Q61.02 Congenital multiple renal cysts; N28.89 Other specified disorders of kidney and ureter
CPT/HCPCS: 71250

== ENCOUNTER 2024-04-29 12:40 | Oncology outpatient (recurring) (ONCR) | payer MEDICARE, MEDICAID, SELFPAY ==
--- NOTE | 2024-04-29 13:30 | PETR_ITS ---
PROCEDURE INFORMATION: Exam: PET/CT Skull Base to Mid-thigh Exam date and time: 04/29/2024 2:40 PM Age: 78 years old Clinical indication: Condition or disease; Primary cancer: Lung cancer; Additional info: Restaging, done no later than 04/21 please LABS AND CLINICAL REPORTS: Glucose: 105 mg/dl Treatment strategy for malignancy (PET staging): Restaging (PS) TECHNIQUE: Imaging protocol: Following at least four-hour fasting and following the injection of radiopharmaceutical, low dose CT images were obtained. Then, PET images were obtained. Attenuation corrected images were constructed using the CT scan. Fused images of PET and CT were reviewed. The standardized uptake values (SUV) reported below are maximum values within a region of interest, expressed in gm/ml. Exam includes orbital meatal line to mid-thigh. Radiopharmaceutical: 11.37 mCi F-18 FDG (Fluorodeoxyglucose), IV. Time of imaging post radiopharmaceutical administration: 1 hour Injection site: Left antecubital COMPARISON: CT chest 04/17/2024, CT chest 03/12/2024, [email or web address] [id number] 01/22/2024 8:49 AM FINDINGS: Tubes, catheters and devices: A left subclavian central venous port catheter terminates in the proximal SVC. Brain: Visualized brain has normal physiologic uptake. Pharynx: No abnormal uptake. Larynx: No abnormal uptake. Lungs, pleura and trachea: Mild bilateral centrilobular emphysematous changes are present. Non radiotracer avid mild hazy density throughout both lungs is noted. A spiculated solid mass in the right upper lobe measuring 3.2 x 2.3 cm (previously 4.8 x 5.0 cm on the prior PET-CT) on series 3, image 63 is present, SUV max 2.4 (previously 20.5). Bilateral calcified granulomas are noted. Heart: Normal physiologic uptake. Mediastinal space: No abnormal uptake. Liver: No abnormal uptake. Gallbladder and biliary ducts: No abnormal uptake. Pancreas: No abnormal uptake. Spleen: No abnormal uptake. Adrenal glands: No abnormal uptake. Kidneys and ureters: Non radiotracer avid rounded structures in the bilateral kidneys likely represent benign cysts. Assessment of renal lesions can be limited by PET-CT. Stomach and bowel: No abnormal uptake. Vasculature: No abnormal uptake. There are diffuse atherosclerotic changes. Lymph nodes: Numerous similar in size small calcified mediastinal and bilateral hilar lymph nodes demonstrate mild uptake, for example in the precarinal space, SUV max 3.4 (previously 5.1) on series 3, image 67 and left hilar region, SUV max 3.4 (previously 3.7) on image 69. Uptake in the right hilar region also likely within small calcified lymph nodes is present, SUV max 3.5 (previously 6.4) on image 77 in there is slightly increased uptake in the right hilar region without a well-defined lymph node on series 3 image 78, SUV max 3.5 (previously 2.9). Skeleton: No abnormal uptake in the visualized axial and appendicular skeleton. Degenerative changes in the spine are present. Bilateral glenohumeral joint primary osteoarthritic changes appear greatest on the left. Soft tissues: No abnormal uptake in the visualized head, neck, chest, abdomen, pelvis, and extremities. A non radiotracer avid low-density circumscribed rounded structure in the subcutaneous fat of the posterior right neck measuring 2 cm on series 3, image 21 likely represents a benign sebaceous cyst. METRICS: Mediastinal blood pool: SUV max 2.8, SUV mean 2.2 PET/PET skull to thigh SUBS [id number] IMPRESSION: 1. There is been interval decrease in size of a malignant right upper lobe mass since the prior PET-CT with significant interval decrease in uptake (SUV max 2.4, previously 20.5) consistent with a response to therapy. Mild within this mass may be related to post treatment inflammatory changes or residual malignancy. 2. Uptake within the mediastinum and bilateral hilar regions where there are small calcified lymph nodes is overall decreased, with the exception of a focus of slightly increased mild uptake in the right hilar region. Malignancy cannot be excluded, however infectious or inflammatory changes may alternatively account for this appearance. 3. Centrilobular emphysematous changes. 4. Old granulomatous changes. 5. Additional nonurgent findings as detailed above.
== END 2024-05-28 23:59 | disposition home or self-care (01) ==
LOC: RAD 12:41 → ONCMED 05-13 07:43
PROVIDERS: PCP Family Medicine; Visit Provider Internal Medicine Medical Oncology
DX: D70.1 Agranulocytosis secondary to cancer chemotherapy (principal); C34.91 Malignant neoplasm of unspecified part of right bronchus or lung
CPT/HCPCS: 78815; A9552

== ENCOUNTER 2024-08-11 07:40 | Oncology outpatient (recurring) (ONCR) | payer MEDICARE, MEDICAID, SELFPAY | END 2024-08-28 23:59 | disposition home or self-care (01) | PROVIDERS: PCP Nurse Practitioner Family; Visit Provider Internal Medicine Hematology & Oncology | DX: C34.91 Malignant neoplasm of unspecified part of right bronchus or lung (principal); D70.1 Agranulocytosis secondary to cancer chemotherapy; E03.8 Other specified hypothyroidism; Z79.899 Other long term (current) drug therapy | CPT/HCPCS: 96523; 99214 ==

== ENCOUNTER 2024-09-22 12:30 | Oncology outpatient (recurring) (ONCR) | payer MEDICARE, MEDICAID, SELFPAY ==
--- NOTE | 2024-09-15 11:00 | CTR_ITS ---
PROCEDURE INFORMATION: Exam: CT Chest With Contrast; Diagnostic Exam date and time: 09/15/2024 11:17 AM Age: 78 years old Clinical indication: Condition or disease; Lung condition and disease; Cancer of the lung; Right; Unspecified; Prior surgery; Surgery date: 6+ months; Surgery type: RT lung, port; Additional info: Followup lung cancer after surgery TECHNIQUE: Imaging protocol: Diagnostic computed tomography of the chest with contrast. Radiation optimization: All CT scans at this facility use at least one of these dose optimization techniques: automated exposure control; mA and/or kV adjustment per patient size (includes targeted exams where dose is matched to clinical indication); or iterative reconstruction. 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 The masslike density which had been present in the right upper lobe is no longer visible. Pleural spaces: Trace right pleural effusion. Heart: Unremarkable. No cardiomegaly. No pericardial effusion. Coronary arteries: Coronary artery calcifications. Lymph nodes: Unremarkable. No enlarged lymph nodes. Vasculature: Atherosclerotic aortic calcifications. Bones/joints: Unremarkable. No acute fracture. Soft tissues: Unremarkable. Other findings: Calcified granuloma on the right. CT/CT chest w con* [id number] IMPRESSION: Resolved right upper lobe mass. COMMENTS: The presence of pulmonary emphysema on CT is an independent risk factor for lung cancer. In the absence of a history or active diagnosis of lung cancer, it is recommended that this patient with emphysema be evaluated for enrollment in a low dose CT lung cancer screening program.
[2024-09-15] MEDS: iohexol 350 mg/mL 500 mL Btl (per mL) IV (11:23)
[2024-09-22 12:25] LABS: Basophils % 0.6 %; Eosinophils # 0.7 10^3/uL (0.0-0.8); Eosinophils % 10.8 %; Hematocrit 35.1 % (36-47); Lymphocytes # 1.6 10^3/uL (0.8-4.8); Lymphocytes % 24.1 %; Mean Corpuscular HGB Conc 32.8 g/dL (30-55); Mean Corpuscular Hemoglobin 33.1 pg (27-33); Mean Corpuscular Volume 101.2 fl (85-98); Mean Platelet Volume 9.3 fL (7.4-10.4); Monocytes # 0.8 10^3/uL (0.2-0.9); Monocytes % 11.4 %; Neutrophils # 3.49 10^3/uL (1.8-7.7); Neutrophils % 52.8 %; Nucleated Red Blood Cells % 0 %; Platelet Count 223 10^3/cmm (157-399); Red Blood Count 3.47 10^6/uL (3.85-5.65); Red Cell Distribution Width 13.9 % (12.1-15.1)
[2024-09-22 13:01] LABS: Alanine Aminotransferase 8 U/L (0-33); Albumin Level 3.8 g/dL (3.5-5.2); Alkaline Phosphatase 83 U/L (35-105); Anion Gap 14.5 (5-19); Aspartate Amino Transferase 17 U/L (0-32); Blood Urea Nitrogen 13 mg/dL (8-23); Carbon Dioxide 26 mmol/L (22-29); Chloride 100 mmol/L (98-107); Creatinine Clr Calc Pharmacy 33.1861; Globulin 3.1 g/dL (1.3-4.6); Glucose 85 mg/dL (65-115); Lactate Dehydrogenase 172 U/L (135-214); Osmolality Calculated 281 mOsm/kg (285-295); Potassium 4.5 mmol/L (3.5-5.1); Sodium 136 mmol/L (136-145); Total Bilirubin 0.3 mg/dL (0.15-1.2); Total Protein 6.9 g/dL (6.6-8.7)
== END 2024-09-27 23:59 | disposition home or self-care (01) ==
PROVIDERS: PCP Nurse Practitioner Family; Visit Provider Internal Medicine Hematology & Oncology
DX: C34.11 Malignant neoplasm of upper lobe, right bronchus or lung; Z79.899 Other long term (current) drug therapy; Z95.828 Presence of other vascular implants and grafts; Z90.2 Acquired absence of lung [part of]; Z53.9 Procedure and treatment not carried out, unspecified reason
CPT/HCPCS: 36591; 71260; 80053; 83615; 84443; 85025; 99214

== ENCOUNTER 2024-11-03 14:20 | Oncology outpatient (recurring) (ONCR) | payer MEDICARE, MEDICAID, SELFPAY | END 2024-11-28 23:59 | disposition home or self-care (01) | LOC: ONCMED 14:22 | PROVIDERS: PCP Nurse Practitioner Family; Visit Provider Internal Medicine Medical Oncology | DX: Z45.2 Encounter for adjustment and management of vascular access device (principal) | CPT/HCPCS: 96523 ==

== ENCOUNTER 2024-12-16 11:42 | Oncology outpatient (recurring) (ONCR) | payer MEDICARE, MEDICAID, SELFPAY | END 2024-12-26 23:59 | disposition home or self-care (01) | LOC: ONCMED 11:42 | PROVIDERS: PCP Nurse Practitioner Family; Visit Provider Internal Medicine Medical Oncology | DX: Z45.2 Encounter for adjustment and management of vascular access device (principal) | CPT/HCPCS: 96523 ==

== ENCOUNTER 2025-01-26 13:23 | Oncology outpatient (recurring) (ONCR) | payer MEDICARE, MEDICAID, SELFPAY | END 2025-01-26 23:59 | disposition home or self-care (01) | PROVIDERS: PCP Nurse Practitioner Family; Visit Provider Internal Medicine Medical Oncology | DX: Z45.2 Encounter for adjustment and management of vascular access device (principal) | CPT/HCPCS: 96523 ==

== ENCOUNTER 2025-03-09 14:00 | Oncology outpatient (recurring) (ONCR) | payer MEDICARE, MEDICAID, SELFPAY ==
--- NOTE | 2025-03-02 10:00 | CT_ITS ---
WS: [id number] CT CHEST, ABDOMEN AND PELVIS WITH CONTRAST HISTORY: adenocarcinoma of right lung TECHNIQUE: Contiguous 5 mm axial imaging performed through the chest, abdomen and pelvis with IV contrast, oral contrast has been provided. Coronal and sagittal reformats chest. Coronal and sagittal reformats through the abdomen and pelvis. All CT scans at [facility] use at least one of these dose optimization techniques: automated exposure control; mA and/or kV adjustment per patient size (includes targeted exams where dose is matched to clinical indication); or iterative reconstruction. CONTRAST: Omnipaque 350; 100 mL IV. DLP: 1055.58 mGy.cm COMPARISON: Chest CT 09/15/2024, PET/CT 04/29/[address]: Previously described RIGHT upper lobe mass has resolved. There are a few scattered tiny nodules, some of these are calcified at the lung bases. Mild peripheral interstitial thickening is chronic. Mild atherosclerotic plaque throughout the aorta. Pulmonary artery is very slightly dilated. No enlarging mediastinal or hilar lymph nodes. LEFT vertebral artery arises directly from the arch. No pericardial or pleural effusion. Small hiatal hernia. Abdomen CT: Normal liver and spleen. Prior cholecystectomy. Mild pancreatic atrophy. No pancreatic duct dilatation. Common bile duct is normal size. Cortical thinning of each kidney with numerous cortical masses consistent with cysts. Some of these are of slight increased attenuation suggesting these are complex cyst. No renal obstruction. Moderate atherosclerotic plaque abdominal aorta. Mild stenosis involving the SMA and celiac axis origins. Stomach is well distended with contrast. No small bowel obstruction or colon obstruction. Prior appendectomy. Mild diverticular disease. No ascites or adenopathy. Pelvic CT: Atrophic uterus. No free fluid or adenopathy. Degenerative spondylitic changes in the thoracic and lumbar spines. CT/CT chest abdpel w/*[id number] IMPRESSION: 1. Complete resolution of the previously described RIGHT upper lobe neoplasm. No recurrent mass or nodule. 2. Chronic emphysematous changes. 3. No mediastinal or hilar adenopathy. 4. Extensive atherosclerotic plaque within the thoracic and abdominal aorta wi th extension into the mesenteric arteries. 5. Numerous bilateral renal cystic masses. No obstruction. Diffuse cortical th inning. 6. Prior appendectomy. 7. Prior cholecystectomy.
[2025-03-02 10:16] LABS: Blood Urea Nitrogen 14 mg/dL (8-23)
[2025-03-02] MEDS: iohexol 350 mg/mL 500 mL Btl (per mL) IV (10:26)
[2025-03-02] MEDS: iohexol 350 mg/mL 500 mL Btl (per mL) PO (10:26)
== END 2025-03-28 23:59 | disposition home or self-care (01) ==
PROVIDERS: PCP Nurse Practitioner Family; Visit Provider Internal Medicine Medical Oncology
DX: C34.91 Malignant neoplasm of unspecified part of right bronchus or lung; Z53.9 Procedure and treatment not carried out, unspecified reason
CPT/HCPCS: 36415; 36591; 71260; 74177; 82565; 84520; 99213

== ENCOUNTER → 2025-03-12 10:02 | Outpatient (BNVA) | payer MEDICARE, MEDICAID, SELFPAY | PROVIDERS: PCP Nurse Practitioner Family; Visit Provider Surgery | DX: Z95.828 Presence of other vascular implants and grafts (principal) | CPT/HCPCS: 99214 ==

== ENCOUNTER 2025-03-30 06:13 | Day surgery (SDC) | payer MEDICARE, MEDICAID, SELFPAY ==
[2025-03-30] VITALS (9 sets, daily range): BP systolic 107–155; BP diastolic 42–98; PULSE 63–100; RESP 14–18; TEMP 36.2–36.5; O2SAT 92–98; BMI 30.7
[2025-03-30] MEDS: sodium chloride 0.9% 1,000 ML 30 ML IV (06:48)
--- NOTE | 2025-03-30 06:55 | W.PM.OPSUD ---
Surgery/Procedure H&P Update DATE OF PROCEDURE: March 30, 2025 DATE H&P PERFORMED: 03/12/25 H&P UPDATE INFORMATION: I have reviewed H&P completed within last 30 days, I have examined patient prior to procedure, No changes to prior documentation, H&P is in [facility] EMR on date indicated and Risks and benefits of the procedure reviewed PLANNED PROCEDURE: Operation Date: 03/30/25 08:00 Proposed Procedures p Portacath Removal [id number] Z95.828(Not Applicable) - Shane Meza MD
[2025-03-30] MEDS: ipratropium 0.5 mg/2.5 mL Neb INHALATION (06:59)
[2025-03-30 07:10] LABS: Blood Urea Nitrogen 16 mg/dL (8-23); Calcium 9.2 mg/dL (8.5-10.5); Carbon Dioxide 24 mmol/L (22-29); Chloride 104 mmol/L (98-107); Creatinine Clr Calc Pharmacy 39.8283; Glucose 108 mg/dL (65-115); Osmolality Calculated 292 mOsm/kg (285-295); Sodium 140 mmol/L (136-145)
--- NOTE | 2025-03-30 07:32 | ANES.PREANE2 ---
Pre-Anesthetic Assessment Height/Weight: Height 5 ft 4 in Weight 179 lb Temp Pulse Resp BP Pulse Ox O2 Del Method 97.5 F L 76 18 155/98 92 Room Air 03/30/25 06:30 03/30/25 07:07 03/30/25 07:07 03/30/25 06:30 03/30/25 07:07 03/30/25 07:07 Preop Diagnosis: Planned port removal Operation Date: 03/30/25 08:00 Proposed Procedures p Portacath Removal [id number] Z95.828(Not Applicable) - Shane Meza MD Was Beta Nusrat taken within 24 hours: N/A Was Clonidine taken within 24 hours: N/A Last intake: Intake Last Liquid Date 03/29/25 Last Liquid Time 23:00 Last Solid Date 03/29/25 Last Solid Time 19:00 Social No alcohol and No tobacco Quit smoking 10 years ago Exam alert, oriented x 3 and regular rate & rhythm Airway Submandibular: within normal limits Cervical ROM: within normal limits Mallampati: Class III Comments: Comments: Edentulous, few spots on uvula Anesthetic Plan ASA status: 3 Anesthesia: MAC Other: No prior issues with anesthesia NPO since yesterday evening Completed chemotherapy for lung cancer Quit smoking 10 years ago History of hypertension on lisinopril BMP performed this a.m. and acceptable for procedure Plan for MAC anesthesia Medications/Allergies Home Medications ?Medication ?Instructions ?Recorded ?Confirmed ?Last Taken ?Type lisinopril 10 mg tablet 10 mg PO DAILY 04/14/21 03/30/25 03/29/25 History lovastatin 20 mg tablet 20 mg PO DAILY 04/14/21 03/30/25 03/29/25 History multivitamin 1 tab PO DAILY 04/14/21 03/30/25 03/29/25 History omega-3 fatty acids 1,000 mg 1,000 mg PO DAILY 04/14/21 03/30/25 03/29/25 History capsule (Fish Oil Concentrate) bupropion HCl 150 mg tablet,12 hr 150 mg PO BID 06/08/21 03/30/25 03/29/25 History sustained-release tiotropium bromide 18 mcg capsule 1 cap inhalation DAILY #60 12/17/23 03/30/25 03/29/25 Rx with inhalation device (Spiriva inhalations with HandiHaler) vitamin E mixed 400 unit capsule 400 unit PO DAILY 01/15/24 03/30/25 03/26/25 History folic acid 1 mg tablet 1 mg PO DAILY #30 tabs 02/13/24 03/30/25 03/29/25 Rx cyanocobalamin (vitamin B-12) 1,000 mcg IM .MONTHLY 03/26/25 03/30/25 03/10/25 History 1,000 mcg/mL injection solution Allergies Allergy/AdvReac Type Severity Reaction Status Date / Time No Known Allergies Allergy Verified 03/30/25 06:26 Current Medications Generic Name Dose Route Start Last Admin Trade Name Freq PRN Reason Stop Dose Admin Sodium Chloride 1,000 mls @ 30 mls/hr 03/30/25 06:30 03/30/25 06:48 Sodium Chloride 0.9% IV 03/31/25 06:29 30 mls/hr .Q24H TUNDE Administration PFSH Anesthesia Medical History Port-A-Cath in place 01/23/24 Dr Lemon Hyperlipemia Hypertension Depression with anxiety Adenocarcinoma of right lung Colon polyp Surgical History History of colonoscopy History of cholecystectomy History of appendectomy Family History Denies family history of Anesthesia complication Bleeding disorder Social History Smoking and tobacco/nicotine status: former use of tobacco/nicotine Quit status (tobacco/nicotine): has quit using Year quit tobacco: 2012 Former quit date comment: 2 ppd X 50 years Data Anesthesia 03/30/25 06:40 BMP 03/30/25 06:40 Sodium 140 Potassium 4.0 Chloride 104 Carbon Dioxide 24 BUN 16 Creatinine 1.2 H Glucose 108 Calcium 9.2
[2025-03-30] MEDS: ceFAZolin 2,000 mg SDV 2000 MG IVP (07:59)
[2025-03-30] MEDS: lidocaine-epi 1% 20 mL INJ 5 ML INJECTION (08:29)
[2025-03-30] MEDS: BUPivacaine 0.25% INJ 10 mL 5 ML INJECTION (08:29)
--- NOTE | 2025-03-30 08:35 | PM.OP ---
Operative Report Date of procedure: March 30, 2025 Pre-op diagnosis: History of lung cancer Post-op diagnosis: Same Post-op findings: Left upper chest Port-A-Cath in place Procedure done: Excision of Port-A-Cath Specimens removed/disposition: Port-A-Cath Surgeon: Shane Meza MD Manager Publishing: NIKHIL OR Staff Estimated blood loss: 5 Complications: None Brief History: 79-year-old female who presented to my office for excision of Port-A-Cath after terminating chemotherapy for lung cancer. After discussion of risk benefits decided to proceed Procedure: Patient was brought into the OR, she was placed in a supine position. Monitored anesthesia care was initiated. The chest was prepped and draped in usual sterile fashion. A timeout was conducted. I made a 3.5 cm incision overlying the previous incision site, the incision was deepened into subcutaneous tissue until the catheter was identified, the capsule around the port was opened with electrocautery and the port delivered through the skin. While holding pressure in the subclavian vein I then remove the catheter, the catheter was intact. I then proceeded to use the #3 Vicryl to obliterate the tract to prevent back bleeding. The capsule was excised to prevent seroma. I then washed the wound with saline. hemostasis was verified Local anesthesia was infiltrated. The wound was closed in layers using #3-0 Vicryl for the subcutaneous tissue #4 Monocryl for the skin and Dermabond was applied. At the end of the procedure all counts were correct the patient tolerated well the procedure was transferred to the PACU in stable condition.
--- NOTE | 2025-03-30 09:42 | ANE.PACU2 ---
Inpatient post-anesthesia follow up: Airway intact: Yes Vital signs: Temperature 97.7 F Pulse Rate 74 Respiratory Rate 18 Blood Pressure 140/65 Pulse Oximetry 92 Oxygen Delivery Me thod Room Air Oxygen Flow Rate 6 Fraction of Inspir ed Oxygen Hydration adequate: Yes Nausea and vomiting: No Pain level: 1 Mental status: Baseline
== END 2025-03-30 09:42 | disposition home or self-care (01) ==
PROVIDERS: Student in an Organized Health Care Education/Training Program; PCP Nurse Practitioner Family; Visit Provider Surgery
PROC: (CPT 36589; principal; 2025-03-30 07:50)
DX: Z45.2 Encounter for adjustment and management of vascular access device (principal); I10 Essential (primary) hypertension; E78.5 Hyperlipidemia, unspecified; Z85.118 Personal history of other malignant neoplasm of bronchus and lung; Z87.891 Personal history of nicotine dependence; Z79.899 Other long term (current) drug therapy
CPT/HCPCS: 36590; 36415; 80048; 94640; J0690; J2704; J3010; J3490; J7030; J7644; J9999

== ENCOUNTER → 2025-04-14 09:08 | Outpatient (BNVA) | payer MEDICARE, MEDICAID, SELFPAY | PROVIDERS: PCP Nurse Practitioner Family; Visit Provider Surgery | DX: R03.0 Elevated blood-pressure reading, without diagnosis of hypertension (principal) | CPT/HCPCS: 99213 ==

== ENCOUNTER 2025-09-14 11:30 | Oncology outpatient (recurring) (ONCR) | payer MEDICARE, MEDICAID, SELFPAY ==
[2025-09-08] MEDS: iohexol 350 mg/mL 500 mL Btl (per mL) PO (09:59)
[2025-09-08 10:11] LABS: Blood Urea Nitrogen 14 mg/dL (8-23)
--- NOTE | 2025-09-08 10:15 | CT_ITS ---
WS: [id number] CT CHEST, ABDOMEN AND PELVIS WITH CONTRAST HISTORY: adenocarcinoma of right lung TECHNIQUE: Contiguous 5 mm axial imaging performed through the chest, abdomen and pelvis with IV contrast, oral contrast has been provided. Coronal and sagittal reformats chest. Coronal and sagittal reformats through the abdomen and pelvis. All CT scans at [facility] use at least one of these dose optimization techniques: automated exposure control; mA and/or kV adjustment per patient size (includes targeted exams where dose is matched to clinical indication); or iterative reconstruction. CONTRAST: Omnipaque 350; 100 mL IV. DLP: 923.74 mGy.cm COMPARISON: 03/02/2025, PET/CT 04/29/[address]: Volume loss in the RIGHT thorax. Previously described RIGHT upper lobe mass is no longer present. No new pulmonary mass or nodule. There are a few benign granulomata within the lungs. Mild atherosclerosis aorta. Normal size pulmonary artery. Normal size heart. No mediastinal or hilar adenopathy. No chest wall abnormality. Abdomen CT: Normal size liver. Mild central hepatic duct dilatation similar to the prior studies. Prior cholecystectomy. Normal size spleen with granulomata. Moderate diffuse atrophy of the pancreas. Kidneys are small caliber with diffuse cortical thinning. Multiple renal cysts and too small to characterize hypodensities. No hydronephrosis. Moderate atherosclerosis aorta. Dense calcifications continue into the common iliac arteries. Calcified plaque at the origins of the SMA and celiac axis. No GI tract obstruction or ischemia. Pelvic CT: Urinary bladder is normally distended. Focal area of increased density and enhancement involving the posterior RIGHT lateral urinary bladder which has not been present on prior studies. Area of enhancement measures 10 mm in diameter. There is no excretion from the ureter therefore this should not be excreted contrast from the kidney. No free fluid in the pelvis. No adenopathy. Advanced degenerative changes in the lumbar spine. No destructive bone lesions. CT/CT chest abdpel w/*[id number] IMPRESSION: 1. No recurrent or new lung mass. 2. No pathologically enlarged mediastinal or hilar lymph nodes. 3. New focal area of enhancement involving the posterior RIGHT urinary bladder wall measuring 10 mm. This is not excreted contrast from the kidneys. Uroepith elial lesion should be considered. 4. Prior cholecystectomy. 5. Advanced atherosclerosis aorta and mesenteric arteries.
[2025-09-08] MEDS: iohexol 350 mg/mL 500 mL Btl (per mL) IV (10:24)
== END 2025-09-27 23:59 | disposition home or self-care (01) ==
PROVIDERS: Internal Medicine; PCP Nurse Practitioner Family; Visit Provider Internal Medicine Medical Oncology
DX: C34.11 Malignant neoplasm of upper lobe, right bronchus or lung (principal); N32.89 Other specified disorders of bladder; Z90.49 Acquired absence of other specified parts of digestive tract; I70.0 Atherosclerosis of aorta; K55.1 Chronic vascular disorders of intestine; R93.89 Abnormal findings on diagnostic imaging of other specified body structures; J84.10 Pulmonary fibrosis, unspecified; K76.89 Other specified diseases of liver; D73.89 Other diseases of spleen; K86.89 Other specified diseases of pancreas; N28.89 Other specified disorders of kidney and ureter; N28.1 Cyst of kidney, acquired; I70.8 Atherosclerosis of other arteries; M47.9 Spondylosis, unspecified
CPT/HCPCS: 71260; 74177; 82565; 84520